=== PATIENT | female | born 1955 | race Caucasian/White ===

== ENCOUNTER 2018-11-27 00:30 | Outpatient (CLI) | payer MEDICARE, SELFPAY ==
--- NOTE | 2018-11-27 07:30 | DI.MAMMO_ITS ---
SYMPTOMS/DIAGNOSIS: SCREENING, Z12.31 MAMMOGRAM: Mammograms were interpreted according to the usual protocol including computer analysis with CAD system, tomosynthesis and C view imaging. The breasts are of moderate density. There is asymmetric fibroglandular tissue in the upper outer quadrant of the right breast compared to the left. No mass or clumped microcalcification identified in either breast. No previous images available for comparison. CONCLUSION: No specific evidence of malignancy at this time. Routine examinations are suggested at yearly intervals in this age group according to the ACS/ACR guidelines. Category I. Breast density Category B. MQSA ASSESSMENT OF FINDINGS: Negative. Category 1. Patient will receive a letter notifying them of these results. BI-RADS category B. There are scattered areas of fibroglandular density.
== END 2018-11-27 00:50 ==
PROVIDERS: PCP Nurse Practitioner; Visit Provider Nurse Practitioner
DX: Z12.31 Encounter for screening mammogram for malignant neoplasm of breast (principal)
CPT/HCPCS: 77063; 77067

== ENCOUNTER 2018-11-27 00:56 | Outpatient (CLI) | payer MEDICARE, SELFPAY ==
[2018-11-27 07:39] LABS: HCT 41.6 % (36.0-46.0); HGB 14.1 g/dL (12.0-15.5); Mean Corp. HGB Concentration 33.9 g/dL (32.0-36.0); Mean Corpuscular Hemoglobin 32.9 pg (27.0-33.0); Mean Corpuscular Volume 97.2 fL (80-95); Mean Platelet Volume 10.1 fL (8.0-11.0); Platelet Count 292 x1000/uL (130-400); RBC 4.28 m/cumm (4.00-5.20); RBC Distribution Width 12.3 % (11.7-14.6); White Blood Cell Count 8.42 k/cumm (4.4-10.8)
[2018-11-27 08:02] LABS: Bilirubin Negative (Negative); Blood Negative (Negative); Clarity Clear; Glucose Negative (Negative); Ketones Negative (Negative); Leukocyte Esterase Negative (Negative); Nitrite Negative (Negative); Specific Gravity 1.025 (1.005-1.025); Urobilinogen 0.2 EU/dL (Up TO 0.2)
[2018-11-27 08:03] LABS: Hemoglobin A1C 6.6 % (4.5-6.2)
[2018-11-27 09:03] LABS: ALT 32 U/L (12-78); AST 15 U/L (15-37); Albumin 4.2 g/dL (3.4-5.0); Alkaline Phosphatase 84 U/L (46-116); Anion Gap 9.1 mmol/L (3-11); BUN 22 mg/dL (7-18); Bilirubin, Total 0.7 mg/dL (0.2-1.0); CO2 30.9 mmol/L (21.0-32.0); CREATININE 0.86 mg/dL (0.55-1.02); Calcium 9.6 mg/dL (8.5-10.1); Chloride 101 mmol/L (98-107); Cholesterol 196 mg/dL (50-200); Glucose 136 mg/dL (70-100); HDL Cholesterol 65 mg/dL (40-60); LDL CHOLESTEROL 107 mg/dL (<100); Potassium 4.2 mmol/L (3.5-5.1); Sodium 141 mmol/L (136-145); Total Protein 7.6 g/dL (6.4-8.2); Triglyceride 143 mg/dL (30-150)
== END 2018-11-27 01:16 ==
PROVIDERS: PCP Nurse Practitioner; Visit Provider Nurse Practitioner
DX: E78.5 Hyperlipidemia, unspecified (principal); R73.03 Prediabetes; I10 Essential (primary) hypertension; E11.9 Type 2 diabetes mellitus without complications
CPT/HCPCS: 80053; 80061; 83721; 85027; 81003; 83036

== ENCOUNTER 2018-12-04 10:23 | Outpatient (REF) | payer MEDICARE, SELFPAY ==
--- NOTE | 2018-12-04 08:30 | PAPFT_PTH ---
PATIENT: Vandana Rothman LOC: [facility] U#:[id number] AGE/SX: 63/F ROOM: RE12/04/[address]: Kelly Arteaga APRN : 1955 BED: DIS: 12/04/2018 SPEC #: [id number] RECD: 12/04/18 12:37 STATUS: ELADIO MORENO #: [id number] DANIEL: 12/04/18 08:[address]: Kelly Arteaga DEPT: [facility] / [facility] Cytology RECD BY: Stephanie Pozo Tissues: 1 - CX/ENDOCX FOR PAP SMEARS Procedures: PAP THIN PREP/UVM Screening HPV DNA PROBE Comments: [id number]
[2018-12-04 13:13] LABS: Microalb ug/mg Crea 6.2 ug/mg Cr
== END 2018-12-04 10:43 ==
LOC: LBN 10:23
PROVIDERS: PCP Nurse Practitioner; Visit Provider Nurse Practitioner
DX: E11.9 Type 2 diabetes mellitus without complications (principal); Z12.4 Encounter for screening for malignant neoplasm of cervix; Z11.51 Encounter for screening for human papillomavirus (HPV)
CPT/HCPCS: 88142; 82043; 82570; 87624

== ENCOUNTER → 2019-01-19 09:12 | Outpatient (BNVA) | payer MEDICARE, SELFPAY | PROVIDERS: PCP Nurse Practitioner; Referring Provider Nurse Practitioner; Visit Provider Physical Therapy Assistant | DX: Z12.11 Encounter for screening for malignant neoplasm of colon (principal); I10 Essential (primary) hypertension; E11.9 Type 2 diabetes mellitus without complications ==

== ENCOUNTER 2019-02-09 06:56 | Day surgery (SDC) | payer MEDICARE, SELFPAY ==
--- NOTE | 2019-02-09 06:51 | COLE_ITS ---
Date of service: 02/09/19 Time of Service: 08:10 Colonoscopy Report Date of procedure: 02/09/19 Pre-op diagnosis general: Colon Cancer Screening Post-op diagnosis procedure note: other (Colorectal polyps) Procedure: Colonoscopy with polypectomy by cold forceps Surgeon: Skyla Strickland Anesthesia proc note operative: other (General/ ASA 2/ Kelly Mancilla CRNA) Estimated blood loss (mL): 3 Pathology: other (ascending ppolyp x2, sigmoid polyp x2) Complications: None Disposition: same day Indications: Mrs. Rothman is a pleasant 63 year old female who was seen in the office for a screening colonoscopy. Her last colonoscopy was in 2014 and was done in [place]. She had polyps, but per patient they were benign. Risks, benefits and complications have been reviewed. Complications include but are not limited to bleeding, pain, perforation, missed small lesion/polyp, sore throat, aspiration and adverse reaction to the medications. Questions were entertained and answered to their satisfaction and they wished to proceed. No guarantees were given or implied. Prep: Miralax/Dulcolax Procedure Start Time: 08:10 Procedure End Time: 08:44 Retraction Time: 20 minutes Findings: 4 small benign appearing polyp Procedure Description: After informed consent was obtained the patient was taken to the procedure room and placed in a left decubitous position. Monitors were applied and a time out was done. The patients name, date of , procedure, allergies to medications and metal in their body was reviewed. The patient was then sedated. Once sedated and comfortable a rectal exam was done. External exam was normal. Internal exam revealed a normal sphincter tone and no palpable masses. The scope was then introduced and retro-flexed. No internal hemorrhoids were identified. The scope was then advanced to the cecum without difficulty. The TI and appendiceal orifice were identified. The prep was adequate. The scope was then slowly retracted over [] minutes back into the rectum. Polyps were removed x2 in the ascending colon with cold forceps and x2 in the sigmoid colon with cold forceps. The scope was removed and the patient was woken up and taken back to Same day surgery in stable condition. The patient tolerated the procedure well and there were no immediate complications. Follow up: The patient should follow up in 3-5 years unless they develop changes in bowel habits or other new gastrointestinal complaints.
--- NOTE | 2019-02-09 06:51 | W.PM.DSUDISC ---
Discharge Plan Disposition Patient Disposition: HOME Condition: Good Discharge Details Reason For Visit: Screening colonoscopy Attending Provider: Skyla Strickland Primary Care Provider: Kelly Arteaga Home Meds and New Rx's Prescriptions: Continued cyclobenzaprine 10 mg tablet 10 mg PO HS PRN (Reason: muscle spasm) Qty: 30 RF: 2 One Daily Multi-Vit w-Mineral 4.5 mg iron powder in packet 1 mg PO DAILY RF: 0 fluticasone propionate [Flonase Allergy Relief] 50 mcg/actuation spray,suspension 2 spray GELA DAILY RF: 0 zolpidem 10 mg tablet 10 mg PO HS PRN (Reason: insomnia) Qty: 30 RF: 3 blood-glucose meter [Smart Patientsuch Verio System] misc .ROUTE .MEDSUPPLY Qty: 1 RF: 0 OneTouch Verio strip .ROUTE .MEDSUPPLY Qty: 50 RF: 12 lancets [FutureAdvisorTouch Delica Lancets] 33 gauge misc .ROUTE .MEDSUPPLY Qty: 100 RF: 0 atorvastatin 20 mg tablet 20 mg PO QPM Qty: 90 RF: 3 lisinopril 10 mg tablet 10 mg PO DAILY Qty: 90 RF: 3 omega-3 fatty acids-fish oil [Fish Oil] 360-1,200 mg Capsule 1 cap PO DAILY RF: 0 Zyrtec 10 mg Capsule 10 mg PO DAILY PRNRF: 0 timolol maleate 0.25 % Drops 1 drp OPHTHALMIC (EYE) BID RF: 0 Discontinued polyethylene glycol 3350 17 gram/dose powder 238 g PO ONCE Qty: 238 RF: 0 bisacodyl [Dulcolax (bisacodyl)] 5 mg tablet,delayed release (DR/EC) 5 mg PO ONCE Qty: 4 RF: 0 Discharge Instructions Instructions: Colonoscopy (DC), Colorectal Polyps (DC) Additional Instructions: Findings: 4 small, most likely benign polyps Follow up:depends on final pathology. I will send a letter in the mail Please call if you develop: fevers >101.5 Nausea or Vomiting Abdominal pain that is not transient DAY SURGERY UNIT POST COLONOSCOPY INSTRUCTIONS 1. Because there will be medication in your system for the next 24 hours, you may feel a little sleepy. Your coordination will be affected. Therefore: a. Do not drive or operate dangerous equipment for 24 hours. b. Do not drink alcohol beverages for 24 hours (not even beer). c. Plan to go home and rest for the day. 2. Generally there are no restrictions on your activity after a day or so has gone by, but you may feel a bit fatigued for a few days. 3 After you arrive home you may have a light meal and return to a normal diet as you can tolerate it without feeling sick to your stomach. 4. After surgery, you may feel pain or discomfort. This should be only transient, but if it persists please contact your doctor. 5. If there are any questions regarding the findings of your procedure, please feel free to contact your doctor. 6. If you are unable to contact your doctor with a problem, contact the hospital at [phone]. 7. Continue all your regular medications unless directed otherwise. I understand the above instructions and have no questions. Signature of Patient or Responsible Adult Escort Date/Time Name of Responsible Adult Escort Signature of Nurse Date/Time Activity:: Activity as Tolerated Diet:: As Tolerated Discharge Orders Discharge Orders: Discharge Order (Routine); Ordered 02/09/19 Ordered By: Skyla Strickland DS: Diagnosis Discharge Diagnosis (1) S/P colonoscopy: Status: Acute (2) Colorectal polyp detected on colonoscopy: Status: Acute
[2019-02-09 07:10] VITALS: BP 140/85; PULSE 89; RESP 18; TEMP 35.9; O2SAT 95
[2019-02-09] MEDS: Lactated Ringers 1,000 ML 80 ML IV (07:42)
--- NOTE | 2019-02-09 08:29 | BOWEL_PTH ---
PATIENT: Vandana Rothman LOC: [facility] U#:[id number] AGE/SX: 63/F ROOM: RE02/09/[address]: Skyla Strickland MD : 1955 BED: DIS: 02/09/2019 SPEC #: [id number] RECD: 02/09/19 12:51 STATUS: ELADIO REQ #: [id number] DANIEL: 02/09/19 08:[address]: Skyla Strickland DEPT: Surgical Specimen RECD BY: Stephanie Pozo ENTERED: 02/09/19 12:52 SP TYPE: Bowel OTHR DR: Kelly Arteaga APRN Tissues: 1 - BIOPSY BOWEL 2 - BIOPSY BOWEL Procedures: GROSS AND MICRO LEVEL 4 Comments: [id number]
[2019-02-09 09:30] VITALS: BP 134/78; PULSE 75; RESP 16; TEMP 35.6; O2SAT 100
== END 2019-02-09 09:45 | disposition home or self-care (01) ==
LOC: SUR 06:56
PROVIDERS: PCP Nurse Practitioner; Visit Provider Surgery
PROC: 0DJD8ZZ Inspection of Lower Intestinal Tract, Via Natural or Artificial Opening Endoscopic (ICD-10-PCS; CPT 45378; principal; 2019-02-09 08:15)
DX: Z12.11 Encounter for screening for malignant neoplasm of colon (principal); D12.2 Benign neoplasm of ascending colon; K63.5 Polyp of colon; Z87.19 Personal history of other diseases of the digestive system; I10 Essential (primary) hypertension
CPT/HCPCS: 45380; 88305

== ENCOUNTER 2019-06-26 03:34 | Outpatient (CLI) | payer MEDICARE, SELFPAY ==
[2019-06-26 08:02] LABS: ALT 32 U/L (12-78); AST 16 U/L (15-37); Alkaline Phosphatase 72 U/L (46-116); Anion Gap 10.5 mmol/L (3-11); BUN 19 mg/dL (7-18); Bilirubin, Total 0.8 mg/dL (0.2-1.0); CO2 28.5 mmol/L (21.0-32.0); CREATININE 0.82 mg/dL (0.55-1.02); Calculated LDL 35 mg/dL; Chloride 102 mmol/L (98-107); Cholesterol 125 mg/dL (50-200); Glucose 102 mg/dL (70-100); HDL Cholesterol 78 mg/dL (40-60); Potassium 4.2 mmol/L (3.5-5.1); Sodium 141 mmol/L (136-145); Total Protein 7.2 g/dL (6.4-8.2); Triglyceride 63 mg/dL (30-150)
== END 2019-06-26 03:54 ==
PROVIDERS: PCP Nurse Practitioner; Visit Provider Nurse Practitioner
DX: I10 Essential (primary) hypertension (principal)
CPT/HCPCS: 36415; 80053; 80061; 83721

== ENCOUNTER 2020-05-18 01:13 | Outpatient (CLI) | payer MEDICARE, SELFPAY ==
[2020-05-18 08:17] LABS: ALT 23 U/L (14-59); AST 14 U/L (15-37); Alkaline Phosphatase 64 U/L (46-116); Anion Gap 8.4 mmol/L (3-11); BUN 25 mg/dL (7-18); Bilirubin, Total 0.6 mg/dL (0.2-1.0); CO2 28.6 mmol/L (21.0-32.0); CREATININE 0.77 mg/dL (0.55-1.02); Calcium 9.5 mg/dL (8.5-10.1); Calculated LDL 109 mg/dL (<100); Chloride 104 mmol/L (98-107); Cholesterol 203 mg/dL (<200); Glucose 98 mg/dL (74-106); HDL Cholesterol 66 mg/dL (40-60); Potassium 4.4 mmol/L (3.5-5.1); Sodium 141 mmol/L (136-145); Triglyceride 143 mg/dL (<150)
== END 2020-05-18 01:33 ==
PROVIDERS: PCP Nurse Practitioner; Visit Provider Nurse Practitioner
DX: E78.5 Hyperlipidemia, unspecified (principal); E11.9 Type 2 diabetes mellitus without complications; I10 Essential (primary) hypertension
CPT/HCPCS: 36415; 80053; 80061

== ENCOUNTER 2020-11-21 11:51 | Outpatient (REF) | payer MEDICARE, SELFPAY ==
[2020-11-21 14:15] LABS: COMMENT (LAB VIEW ONLY) 53.93 mg/dL; Microalb ug/mg Crea 9.1 ug/mg Cr
== END 2020-11-21 12:11 ==
LOC: LBN 11:51
PROVIDERS: PCP Nurse Practitioner; Visit Provider Nurse Practitioner
DX: E11.9 Type 2 diabetes mellitus without complications (principal)
CPT/HCPCS: 82043; 82570

== ENCOUNTER 2021-02-01 02:04 | Outpatient (CLI) | payer MEDICARE, SELFPAY ==
--- NOTE | 2021-02-01 08:00 | DI.DEXA_ITS ---
EXAM: XR DEXA BONE DENSITY W/WO SHONNA CLINICAL HISTORY: f/u osteopenia 2011,M85.88 TECHNIQUE: Routine DEXA evaluation of the lumbar spine, hip, or forearm. COMPARISON: No exams were available for comparison FINDINGS: Performed on a Hologic unit. Lateral image: No compression fracture evident. Lumbar Spine total T-score: -1.0 Hip total T-score:-1.9. Independent reading at the femoral neck yields a T-score of -2.1 Forearm total T-score: -2.4 IMPRESSION: Bone mineral density measures in the osteopenia range. Fracture risk is moderate. Note: Any spine fracture indicates 5x risk for subsequent spine fracture and 2x risk for subsequent h ip fracture. World Health Organization criteria for BMD interpretation classify patients: Normal...... T- Score at or above -1.0 Osteopenic... T- Score between -1.0 and -2.5 Osteoporosis... T-Score at or below -2.5
--- NOTE | 2021-02-01 16:50 | DI.MAMMO_ITS ---
EXAM: MG MAMMO SCREENING CLINICAL HISTORY: screening,Z12.39. TECHNIQUE: Bilateral full field digital CC and MLO mammographic images were obtained with 3D tomosyn thesis and utilizing computer aided detection (CAD). COMPARISON: Prior mammogram of November 2018 FINDINGS: There are no new spiculated masses nor malignant appearing microcalcification groups. There is no significant architectural distortion nor skin thickening-retraction. IMPRESSION: No radiographic evidence of malignancy. BI-RADS Category 1 - Negative Breast Density - Category B - Scattered areas of fibroglandular density Breast density Category C or D implies that the patient has dense breast tissue. Dense breast tissue can make it harder to find cancer on a mammogram. Dense breast tissue is also associated with an incr eased risk of breast cancer. This information about the result of the mammogram report was provided to the patient to raise their awareness. Use this report when you speak with the patient about their risks for breast cancer, which includes their family history. At that time, you may recommend additional screening tests (Ultrasoun d or MRI) as these tests may add significant information. A negative radiographic report should not delay biopsy if a dominant or clinically suspicious mass is present. Up to ten percent of cancers are not identified on mammography. A negative report may reinforce clinical impression. Adenosis and dense breasts may obscure an underlying neoplasm. False positive reports average 6 to 10%. Patient will receive a letter notifying them of these results.
== END 2021-02-01 02:24 ==
PROVIDERS: PCP Nurse Practitioner; Visit Provider Nurse Practitioner
DX: Z12.31 Encounter for screening mammogram for malignant neoplasm of breast (principal); M85.88 Other specified disorders of bone density and structure, other site
CPT/HCPCS: 77063; 77067; 77080

== ENCOUNTER 2021-05-01 03:22 | Outpatient (CLI) | payer MEDICARE, SELFPAY ==
[2021-05-01 12:59] LABS: ALT 26 U/L (14-59); AST 17 U/L (15-37); Albumin 4.3 g/dL (3.4-5.0); Alkaline Phosphatase 71 U/L (46-116); Anion Gap 8.8 mmol/L (3-11); BUN 29 mg/dL (7-18); Bilirubin, Total 0.7 mg/dL (0.2-1.0); CO2 29.2 mmol/L (21.0-32.0); CREATININE 0.9 mg/dL (0.55-1.02); Calcium 9.6 mg/dL (8.5-10.1); Calculated LDL 95 mg/dL (<100); Chloride 101 mmol/L (98-107); Cholesterol 187 mg/dL (<200); Glucose 107 mg/dL (74-106); HDL Cholesterol 75 mg/dL (40-60); Potassium 4.2 mmol/L (3.5-5.1); Sodium 139 mmol/L (136-145); Total Protein 7.5 g/dL (6.4-8.2); Triglyceride 88 mg/dL (<150)
== END 2021-05-01 03:23 | disposition home or self-care (01) ==
LOC: LOS 03:23
PROVIDERS: PCP Nurse Practitioner; Visit Provider Nurse Practitioner
DX: I10 Essential (primary) hypertension (principal); E11.9 Type 2 diabetes mellitus without complications; E78.5 Hyperlipidemia, unspecified
CPT/HCPCS: 36415; 80053; 80061

== ENCOUNTER 2022-03-12 01:26 | Outpatient (CLI) | payer MEDICARE, SELFPAY ==
[2022-03-12 12:48] LABS: HCT 38.3 % (36.0-46.0); HGB 12.7 g/dL (11.2-15.7); MCH 32.5 pg (27.0-33.0); MCHC 33.2 % (32.0-36.0); MCV 98 fL (80-95); MPV 9.4 fL (8.0-11.0); Platelet Count 346 10^3/uL (130-400); RBC 3.91 10^6/uL (3.93-5.22); RDW 12.5 % (11.7-14.6); RDW-SD 44.9 fL; WBC 8.23 10^3/uL (4.4-10.8)
[2022-03-12 13:24] LABS: ALT 27 U/L (14-59); AST 17 U/L (15-37); Albumin 3.9 g/dL (3.4-5.0); Alkaline Phosphatase 79 U/L (46-116); Anion Gap 7.1 mmol/L (3-11); BUN 18 mg/dL (7-18); Bilirubin, Total 0.5 mg/dL (0.2-1.0); C-Reactive Protein 0.06 mg/dL (0.0-0.3); CO2 27.9 mmol/L (21.0-32.0); CREATININE 0.9 mg/dL (0.55-1.02); Chloride 105 mmol/L (98-107); Glucose 115 mg/dL (74-106); Potassium 4.3 mmol/L (3.5-5.1); Sodium 140 mmol/L (136-145)
[2022-03-12 13:47] LABS: Calculated LDL 83 mg/dL (<100); Cholesterol 176 mg/dL (<200); HDL Cholesterol 66 mg/dL (40-60); Triglyceride 135 mg/dL (<150)
[2022-03-12 14:31] LABS: ESR 4 mm/hr (0-30)
[2022-03-12 21:19] LABS: Rheumatoid Factor <8.6 IU/mL (<12.0)
[2022-03-13 11:19] LABS: Lyme Ab w Rflx to Lyme Confirm Negative (Negative)
[2022-03-13 16:17] LABS: ANA Interpretation Positive (Negative); ANA Titer Pattern 1:320 Homogeneous
== END 2022-03-12 01:27 | disposition home or self-care (01) ==
LOC: LOS 01:26
PROVIDERS: PCP Nurse Practitioner; Visit Provider Nurse Practitioner
DX: M25.50 Pain in unspecified joint (principal); M25.60 Stiffness of unspecified joint, not elsewhere classified; E11.9 Type 2 diabetes mellitus without complications; E78.5 Hyperlipidemia, unspecified; I10 Essential (primary) hypertension; E78.00 Pure hypercholesterolemia, unspecified
CPT/HCPCS: 36415; 80053; 80061; 85027; 85652; 86038; 86140; 86431; 86618

== ENCOUNTER → 2022-08-24 10:43 | Outpatient (BNVA) | payer MEDICARE, SELFPAY | PROVIDERS: PCP Nurse Practitioner; Referring Provider Nurse Practitioner; Visit Provider Surgery | DX: Z86.010 Personal history of colon polyps (principal); Z12.11 Encounter for screening for malignant neoplasm of colon ==

== ENCOUNTER 2022-09-03 09:45 | Day surgery (SDC) | payer MEDICARE, SELFPAY ==
--- NOTE | 2022-09-03 06:44 | COLE_ITS ---
Date of service: 09/03/22 Time of Service: 11:43 Colonoscopy Report Date of procedure: 09/03/22 Pre-op diagnosis general: colon cancer screening and Hx of polyps Post-op diagnosis procedure note: other (ascending polyp) Procedure: Colonoscopy with polypectomy Surgeon: Skyla Strickland Anesthesia Type: General:No Airway Estimated blood loss (mL): 2 Pathology: other (scending polyp) Complications: None Disposition: same day Indications: The patient? is a pleasant ? 67-year-old female who is here to discuss another screening colonoscopy. ? Her last colonoscopy was in 2019 and she was noted to have a sessile serrated adenoma.? She denies any changes in bowel habits, melena, hematochezia, unintentional weight loss or family history of colon cancer.? The procedure and risks were discussed.? The prep was reviewed in det ail.? Risks, benefits and complications have been reviewed. Complications include but are not limited to bleeding, pain, perforation, missed small lesion/polyp, sore throat, aspiration and adverse reaction to the medications. Questions were entertained and answered to their satisfaction and they wished to proceed. No guarantees were given or implied. Prep: Miralax/Dulcolax Procedure Start Time: 11:43 Procedure End Time: 12:13 Retraction Time: 14 minutes Findings: one small polyp Procedure Description: After informed consent was obtained the patient was taken to the procedure room and placed in a left decubitous position. Monitors were applied and a time out was done. The patients name, date of , procedure, allergies to medications and metal in their body was reviewed. The patient was then sedated. Once sedated and comfortable a rectal exam was done. External exam was normal. Internal exam revealed a normal sphincter tone and no palpable masses. The scope was then introduced and retro-flexed. No internal hemorrhoids, polyps or masses were identified on retro-flexion. The scope was then advanced to the cecum without difficulty. The ileocecal vlave and appendiceal orifice were identified. The prep was adequate. The scope was then slowly retracted over 14 minutes back into the rectum. Polyps were removed with cold forceps in the ascending colon. There was no diverticulosis noted. The scope was removed and the patient was woken up and taken back to Same day surgery in stable condition. The patient tolerated the procedure well and there were no immediate complicatio ns. .
--- NOTE | 2022-09-03 06:45 | W.PM.DSUDISC ---
Date of service: 09/03/22 Time of Service: 11:43 Discharge Plan Disposition Patient Disposition: HOME Condition: Good Discharge Details Reason For Visit: colonoscopy Attending Provider: Skyla Strickland Primary Care Provider: Kelly Arteaga Home Meds and New Rx's Prescriptions: Continued One Daily Multi-Vit w-Mineral 4.5 mg iron powder in packet 1 mg PO DAILY (DME) blood-glucose meter [OneTouch Verio Meter] mis See Dose Instructions .ROUTE .MEDSUPPLY Qty: 1 0RF Dose Instruction: As directed Rx Instructions: As directed latanoprost 0.005 % drops 1 drp OP QPM (DME) OneTouch Verio test strips Strip See Dose Instructions .ROUTE .MEDSUPPLY Qty: 50 12RF Dose Instruction: As directed Rx Instructions: Dx E11.9 To test BS daily to keep A1C less than 7.0. (DME) lancets [OneTouch Delica Lancets] 33 gauge misc See Dose Instructions .ROUTE .MEDSUPPLY Qty: 100 6RF Dose Instruction: As directed Rx Instructions: Dx E11.9 To test BS daily to keep A1C less than 7.0. timolol 0.25 % drops 1 drp OP BID Zyrtec 10 mg capsule 10 mg PO DAILY PRN (Reason: allergy symptoms) Qty: 90 3RF fluticasone propionate [Flonase Allergy Relief] 50 mcg/actuation spray,suspension 2 spray GELA DAILY Qty: 16 12RF lisinopril 10 mg tablet 10 mg PO DAILY Qty: 90 3RF cyclobenzaprine 10 mg tablet 10 mg PO HS PRN (Reason: muscle spasm) Qty: 90 3RF zolpidem 10 mg tablet 10 mg PO HS PRN (Reason: insomnia) Qty: 90 1RF Discontinued polyethylene glycol 3350 17 gram/dose powder 238 g PO ONCE Qty: 238 0RF Rx Instructions: take per colonoscopy instructions bisacodyl [Dulcolax (bisacodyl)] 5 mg tablet,delayed release (DR/EC) 5 mg PO ONCE Qty: 4 0RF Rx Instructions: take per colonoscopy instructions Discharge Instructions Additional Instructions: Findings: one small polyp Follow up: 5 years Please call if you develop: fevers >101.5 Nausea or Vomiting Abdominal pain that is not transient Rectal bleeding that is more then a tbsp A hard abdomen and inability to pass gas DAY SURGERY UNIT POST ENDOSCOPY INSTRUCTIONS Instructions for everyone who is given Anesthesia: For your safety, please do the following for the next 24 Hours: a. Do not drive or operate dangerous equipment b. Do not drink alcohol beverages or use any recreational drugs for the first 24 hours or while taking pain medications. The medications in your body may have a reaction that can be dangerous. c. Do not make any important decisions or sign any important papers 1. Generally there are no restrictions on your activity after a day or so has gone by, but you may feel a bit fatigued for a few days. 2. After you arrive home you may have a light meal and return to a normal diet as you can tolerate it without feeling sick to your stomach. 3. After surgery, you may feel pain or discomfort. This should be only transient, but if it persists please contact your doctor. 4. If there are any questions regarding the findings of your procedure, please feel free to contact your doctor. 6. If you are unable to contact your doctor with a problem, contact the hospital at [phone]. 7. Continue all your regular medications unless directed otherwise. I understand the above instructions and have no questions. Signature of Patient or Responsible Adult Escort Date/Time Name of Responsible Adult Escort Signature of Nurse Date/Time Activity:: Activity as Tolerated Diet:: As Tolerated Discharge Orders Discharge Orders: Discharge Order (Routine); Ordered 09/03/22 Ordered By: Skyla Strickland
[2022-09-03 09:50] VITALS: BP 148/78; PULSE 74; RESP 16; TEMP 36.2; O2SAT 96
[2022-09-03] MEDS: Lactated Ringers 1,000 ML 80 ML IV (10:07)
[2022-09-03 10:39] VITALS: BMI 29.6
--- NOTE | 2022-09-03 10:39 | W.ANESPRE ---
General Info Date of Service Date Performed: 09/03/22 Height: 5 ft 1 in Weight: 71.2 kg Body Mass Index (BMI): 29.6 Surgical Procedure: Operation Date: 09/03/22 11:35 Proposed Procedure Side Surgeon p Colonoscopy Skyla Strickland MD Meds Allergies and Home Medications Allergies Allergy/AdvReac Type Severity Reaction Status Date / Time procaine [From Novocain] Allergy Severe violent Verified 09/03/22 09:55 headache prednisone AdvReac Mild doesn't Verified 09/03/22 09:55 seem to work Home Medication Medication Instructions Recorded blood-glucose meter (OneTouch #1 ea 12/31/18 Verio Meter) multivit with minerals-ferrous 1 mg PO DAILY 01/19/19 sulfate 4.5 mg iron oral powder packet (One Daily Multivitamins with Minerals) latanoprost 0.005 % eye drops 1 drp ophthalmic (eye) QPM 06/29/19 timolol 0.25 % eye drops 1 drp ophthalmic (eye) BID 02/29/20 cetirizine 10 mg capsule (Zyrtec) 10 mg PO DAILY PRN allergy 12/18/21 symptoms #90 caps fluticasone propionate 50 2 spray intranasal DAILY #16 grams 12/18/21 mcg/actuation nasal spray,suspension (Flonase Allergy Relief) lisinopril 10 mg tablet 10 mg PO DAILY #90 tabs 12/18/21 cyclobenzaprine 10 mg tablet 10 mg PO HS PRN muscle spasm #90 02/12/22 tabs zolpidem 10 mg tablet 10 mg PO HS PRN insomnia #90 tabs 04/17/22 blood sugar diagnostic (OneTouch #50 ea 07/02/22 Verio test strips) lancets 33 gauge (OneTouch Delica #100 ea 07/02/22 Lancets) bisacodyl 5 mg tablet,delayed 5 mg PO ONCE colonscopy bowel prep 08/24/22 release (Dulcolax (bisacodyl)) #4 tabs polyethylene glycol 3350 17 238 g PO ONCE colonoscopy prep 08/24/22 gram/dose oral powder #238 grams Current Visit Medications: Current Medications Generic Name Dose Route Start Last Admin Trade Name Freq PRN Reason Stop Dose Admin Hyoscyamine Sulfate 0.125 mg 09/03/22 06:46 Hyoscyamine 0.125 Mg Sl/Oral/Chew SL DIRECTED PRN Ringer's Solution 1,000 mls @ 80 mls/hr 09/03/22 06:00 09/03/22 10:07 IV 09/30/22 23:59 80 mls/hr INFUSION DEDE Administration IV Miscellaneous Supplies 1 each 09/03/22 06:00 Iv Access IV 09/30/22 23:59 DIRECTED DEDE Ondansetron HCl 4 mg 09/03/22 06:46 Ondansetron 4 Mg/2 Ml Vial IVP Q4H PRN PRN Nausea / Vomiting Sodium Chloride 0 ml 09/03/22 06:00 Normal Saline Flush 10 Ml Syr IV 09/30/22 23:59 PRN PRN Sodium Chloride 0 ml 09/03/22 06:00 Normal Saline 10 Ml Vial IJ 09/30/22 23:59 DIRECTED PRN Sterile Water 0 ml 09/03/22 06:00 Water,Injection,Sterile 10 Ml Vial IJ 09/30/22 23:59 DIRECTED PRN PFSH Active Problems Active Problems: Problem Status Onset Code Seborrheic keratoses L82.1 Ex-smoker Z87.891 Osteopenia M85.80 Type 2 diabetes mellitus without complications E11.9 Joint stiffness M25.60 Joint pain M25.50 Osteoarthritis M19.90 Colorectal polyp detected on colonoscopy ~02/09/19 K63.5 DM (diabetes mellitus) E11.9 Osteopenia M85.80 Hyperlipidemia E78.5 Essential hypertension I10 Low back pain M54.5 Medical History Medical History Allergic rhinitis Colon polyp Fatigue Fibrocystic breast Glaucoma Hypoglycemia Impaired fasting glucose Medical History Comments:: Patient reports post nasal drip occ. and signifigant allergies particularly at this time of year. Surgical History Surgical History History of colonoscopy (~02/09/19) 2010- normal 2019- SSA and HP History of tonsillectomy History of tubal ligation Tobacco Smoking/Tobacco Use Status: Former Tobacco Use Alcohol Alcohol Intake: never Substance Use Substance use: Never Substance use type: does not use Vital Signs and Lab Results Vital Signs Most Recent Vital Signs in EMR: Most Recent Vital Signs Temp Pulse Resp BP Pulse Ox 36.2 C L 74 16 148/78 H 96 09/03/22 09:50 09/03/22 09:50 09/03/22 09:50 09/03/22 09:50 09/03/22 09:50 Lab Results Blood Type / Crossmatch: No Data to Display Complete Blood Count: No Data to Display Complete Metabolic Panel: No Data to Display Liver Function Panel: No Data to Display Coagulation Panel: No Data to Display Cardiac Panel: No Data to Display Arterial Blood Gas: No Data to Display Venous Blood Gas: No Data to Display Pancreas Panel: No Data to Display Thyroid Panel: No Data to Display Infectious Disease: No Data to Display Blood Cultures: No Data to Display Toxicology Panel: No Data to Display Anesthesia Assessment and Plan Anesthesia History Personal History: No History of Anesthesia Complications Family History: No Family History of Anesthesia Complications Exercise Tolerance Exercise Tolerance: Metabolic Equivalents>4 Pertinent Negatives Pertinent Negatives: No Symptoms of GERD Cardiac & Pulmonary Exam Cardiac Exam: Normal S1/S2 Heart Sounds Pulmonary Exam: Clear Bilateral Breath Sounds Implantable Cardiac Device Does patient have a Pacemaker or an ICD?: No Airway Exam Known Difficult Airway: No Mallampati Class: 2 Mouth Opening: Normal (> 3cm) Thyromental Distance: Greater than 3 cm Neck Range of Motion: Full ROM Neck Circumference: Normal Teeth Condition: Normal Dentition ASA Classification ASA Score: ASA 2 Emergency Case?: No NPO Status NPO Status: NPO Clears >2 hours, Solids >8 hours Anesthesia Plan Resuscitation Status: Full Code Anesthesia Technique: General Anesthesia Airway Planned: Natural Airway Monitors Used: Standard Monitors
--- NOTE | 2022-09-03 12:04 | BOWEL_PTH ---
PATIENT: Vandana Rothman LOC: [facility] U#:[id number] AGE/SX: 67/F ROOM: RE09/03/[address]: Skyla Strickland MD : 1955 BED: DIS: 09/03/2022 SPEC #: [id number] RECD: 09/03/22 13:23 STATUS: ELADIO REQ #: [id number] DANIEL: 09/03/22 12:[address]: Skyla Strickland DEPT: Surgical Specimen RECD BY: Stephanie Pozo ENTERED: 09/03/22 13:24 SP TYPE: Bowel OTHR DR: Kelly Arteaga APRN Tissues: 1 - BIOPSY BOWEL Procedures: GROSS AND MICRO LEVEL 4 Comments: [id number]
[2022-09-03 12:19] VITALS: BP 109/81; PULSE 89; RESP 17; TEMP 36.5; O2SAT 95
[2022-09-03 12:57] VITALS: BP 148/78; PULSE 78; RESP 16; TEMP 36.6; O2SAT 96
--- NOTE | 2022-09-03 13:01 | W.ANESPOSTOP ---
Postoperative Evaluation Date, Time and Location Date Performed: 09/03/22 Time Performed: 12:24 Patient Location: Day Surgery Unit Vital Signs Most Recent Imported Vital Signs: Most Recent Vital Signs Temp Pulse Resp BP Pulse Ox 36.5 C 89 17 109/81 95 09/03/22 12:19 09/03/22 12:19 09/03/22 12:19 09/03/22 12:19 09/03/22 12:19 Pain Score Most Recent Pain Score: Most Recent Pain Score Pain Level 3 09/03/22 12:19 Assessment Mental Status: Awake (Alert & Oriented to Patient Baseline) Airway and Respiratory Function: Patent airway with normal (patient baseline) respiratory exam Cardiovascular Function: Hemodynamically Stable Hydration Status: Adequately Hydrated Nausea & Vomiting: No Nausea or Vomiting Pain: Pt. Denies Any Pain Peripheral Nerve Block: Patient did not receive a nerve block
== END 2022-09-03 09:46 | disposition home or self-care (01) ==
PROVIDERS: PCP Nurse Practitioner; Visit Provider Surgery
PROC: 0DJD8ZZ Inspection of Lower Intestinal Tract, Via Natural or Artificial Opening Endoscopic (ICD-10-PCS; CPT 45378; principal; 2022-09-03 11:30)
DX: Z12.11 Encounter for screening for malignant neoplasm of colon (principal); K63.5 Polyp of colon; Z86.010 Personal history of colon polyps; K63.89 Other specified diseases of intestine
CPT/HCPCS: 45380; 88305

== ENCOUNTER 2023-04-10 02:55 | Outpatient (CLI) | payer MEDICARE, SELFPAY ==
--- NOTE | 2023-04-10 07:30 | DI.MAMMO_ITS ---
Exam(s) MAMMO SCREENING EXAM: MAMMO SCREENING CLINICAL HISTORY: screening,z12.39 TECHNIQUE: Bilateral full field digital CC and MLO mammographic images were obtained with 3D tomosyn thesis and utilizing computer aided detection (CAD). COMPARISON: Available for comparison. FINDINGS: Masses/Architectural Distortion: Stable nodule in the outer left breast. No suspicious nodules. Sta ble asymmetric density in the upper-outer quadrant of the right breast. No evidence of architectural distortion. Microcalcifications: No suspicious pleomorphic-type are seen. Skin Thickening/Nipple Retraction: None. IMPRESSION: 1. No significant interval change with no specific features of malignancy noted. 2. Unless there is more urgent need, screening mammography is recommended, as per [employer] guidelines. BI-RADS Category 1 - Negative Breast Density - Category B - Scattered areas of fibroglandular density Breast density category C or D implies that the patient has dense breast tissue. Dense breast tissue is very common and is not abnormal but dense breast tissue can make it harder to find cancer on a ma mmogram. Also, dense breast tissue may increase their breast cancer risk. This information about the result of the mammogram report was provided to the patient to raise their awareness. Use this report when you speak with the patient about their risks for breast cancer, which includes their family hist ory. At that time, you may recommend for more screening tests (Ultrasound or MRI) as they might be us eful based on their risk. A negative radiographic report should not delay biopsy if a dominant or clinically suspicious mass is present. Up to ten percent of cancers are not identified on mammography. A negative report may reinforce clinical impression. Adenosis and dense breasts may obscure an underlying neoplasm. False positive reports average 6 to 10%. Patient will receive a letter notifying them of these results.
== END 2023-04-10 03:15 ==
LOC: DI 02:55
PROVIDERS: PCP Nurse Practitioner; Visit Provider Nurse Practitioner
DX: Z12.31 Encounter for screening mammogram for malignant neoplasm of breast (principal)
CPT/HCPCS: 77063; 77067

== ENCOUNTER 2023-05-26 07:59 | Inpatient (IN) | payer MEDICARE, SELFPAY ==
[2023-05-26] VITALS (37 sets, daily range): BP systolic 96–144; BP diastolic 57–87; PULSE 65–105; RESP 14–24; TEMP 36–37.1; O2SAT 92–97
--- NOTE | 2023-05-26 08:00 | RT.EKG_ITS ---
APPROVED REPORT Exam: Resting ECG Reason for Exam: chest pain Patient Location: E HR:96 bpm ECG Measurements Heart Rate 96 AXIS TX 116 P 71 QRSd 79 QRS 35 QT 276 T 255 QTc 349 Conclusion Sinus rhythm...normal P axis, V-rate 60- 99 Ventricular premature complex...V complex w/ short R-R interval Borderline repol abnormality, diffuse leads...ST dep, T flat/neg, ant/lat/inf
--- NOTE | 2023-05-26 08:15 | DI.CT_ITS ---
Exam(s) CT CHEST/ABD/PEL W EXAM: CT CHEST/ABD/PEL W CLINICAL HISTORY: Midepigastric abd pain, R/O AAA TECHNIQUE: Imaging Protocol: Axial computed tomography images with coronal and sagittal reformatted images were created and reviewed CONTRAST MATERIAL: Intravenous: Omnipaque 350 contrast volume:100 mL Oral: No COMPARISON: No exams were available for comparison FINDINGS: CHEST: Tracheobronchial tree: Patent where visualized. Pulmonary parenchyma: No consolidation or dominant measurable mass. No architectural distortion. Mild atelectasis seen in the lung bases. Visualized thyroid gland: Unremarkable. Mediastinum and Natalia: No dominant adenopathy or fluid collection. The esophagus is unremarkable. Pleura: No effusion or pneumothorax. Heart: The heart is not dilated. Mild coronary artery calcification. No pericardial effusion. Pulmonary arteries: The subsegmental pulmonary arteries are poorly opacified. No large central pulmo nary embolus is seen. Aorta: Thoracic aorta non-dilated. No evidence of dissection. Atherosclerosis is present. Lymph nodes: Within normal limits. Soft tissues: Unremarkable. Bones:Within normal limits for the patient's age. ABDOMEN: Liver: Normal density. No measurable mass. Portal, Superior Mesenteric, and Splenic Veins: Unremarkable. Gallbladder and Biliary Tract: There is no cholelithiasis. The gallbladder is mildly distended. The re is an enhancing wall and mild pericholecystic fluid. There is intra and extrahepatic bile duct di latation. The common duct measures 1 cm. Pancreas: Normal density, no abnormal calcifications or inflammatory process. Spleen: Normal. Adrenals: No masses seen. Kidneys: Normal size, contour and axis. No radiodense stones or obstructive uropathy. No masses seen. Abdominal Aorta: Abdominal portion non-dilated. Moderate atherosclerosis. Bowel: No obstruction or bowel wall thickening. There is no evidence of appendicitis. There is a lar ge amount of stool seen in the cecum in the ascending colon. Peritoneal Cavity: No ascites, collection or mesenteric inflammatory response. No free air. Lymph Nodes: Within normal limits. Bones: Within normal limits for the patient's age. Soft Tissues: Unremarkable. PELVIS: Bladder: Symmetric distention, no gross wall thickening. Reproductive Organs: Unremarkable as visualized. Lymph Nodes: Within normal limits. Bones: Within normal limits. IMPRESSION: 1. No acute pulmonary process. 2. No evidence of a thoracic aortic aneurysm or dissection. 3. No evidence of an abdominal aortic aneurysm or dissection. 4. Intra and extrahepatic bile duct dilatation. No cholelithiasis. Pericholecystic fluid. Findings may represent an acute cholecystitis. Gallbladder ultrasound is recommended for further evaluation. In addition, MRCP should be considered to exclude a obstructing mass. RADIATION DOSE DELIVERED: 1,213.42mGy.cm Total DLP DATA REPOSITORY: All CT scans at this facility are submitted to the National Radiology Data Registry (NRDR) Dose Index Registry (DIR) with the [employer] (A[employer]). RADIATION OPTIMIZATION: All CT scans at this facility use at least one of these dose optimization te chniques: automated exposure control; mA and/or kV adjustment per patient size (includes targeted exa ms where dose is matched to clinical indication); or iterative reconstruction.
[2023-05-26 08:27] LABS: Abs Immature Grans 0.05 10^3/uL (0.0-0.06); Absolute Basophil Count 0.05 10^3/uL (0.0-0.2); Absolute Eosinophil Count 0.01 10^3/uL (0.0-0.7); Absolute Lymphocyte Count 1.07 10^3/uL (1.2-3.4); Basophils % 0.4; Eosinophils % 0.1; HCT 37.4 % (36.0-46.0); HGB 12.8 g/dL (11.2-15.7); Immature Grans % 0.4; Lymphocytes % 9.3; MCH 32.3 pg (27.0-33.0); MCHC 34.2 % (32.0-36.0); MCV 94 fL (80-95); MPV 9.6 fL (8.0-11.0); Monocytes % 14.6; Neutrophils % 75.2; Platelet Count 289 10^3/uL (130-400); RBC 3.96 10^6/uL (3.93-5.22); RDW 12.8 % (11.7-14.6); RDW-SD 44.1 fL; WBC 11.47 10^3/uL (4.4-10.8)
--- NOTE | 2023-05-26 08:29 | W.ED.GENAD ---
Discharge Plan Disposition Patient Disposition: Admit to [facility] Condition: Stable Discharge Details Clinical Impression: Choledocholithiasis Admit Date/Time: 05/26/23 10:28 Admit Provider: Nneka Alston Attending Provider: Nneka Alston Primary Care Provider: Kelly Arteaga ED Provider: Sheridan Khan Discharge Data Discharge Date/Time-TO BE ENTERED AT DEPARTURE: 05/26/23 11:42 Medical Decision Making 68-year-old female presents to the ER with a chief complaint of midepigastric abdominal pain which radiates into her back which began on Saturday morning. She reports that it waxes and wanes. She has tried some cgmm-sqf-uuzkwno Gaviscon or Tums equivalent with little to no relief on Saturday. She has not had any aspirin today. She does have a past medical history of hypertension, she is a former smoker 30 years ago, osteopenia, type 2 diabetes mellitus without complications, hyper lipidemia and low back pain. She endorses dizziness, feeling clammy no nausea vomiting diarrhea. No problems urinating or any other associated symptoms. EKG was reviewed by myself and Dr. Herve Bustamante ER attending, please see official report, no old EKG available for review. No STEMI, ST depressions in diffuse leads with repolarization abnormality. Cardiac work-up ordered including serial troponins, lipase, 324 mg aspirin chewable ordered, Mylanta 30 mils. Differential diagnosis includes but not limited to IL, CAD, AAA, GERD, small bowel obstruction, Cholecystitis, Pancreatitis CBC shows white blood cell count of 11.47, absolute neutrophils 1.07, there is a left shift, glucose 139 magnesium 1.7 bilirubin 4.7 elevated transaminases AST 302 ALT 481 alk phos 286 initial troponin within normal limits. Lipase is normal at 27. CT chest abdomen pelvis shows #1. Common bile duct dilated to 12 mm with intrahepatic ductal dilatation. No radiopaque ductal calculus identified. Smooth tapering to the ampulla is noted. Additional work-up with MRCP suggested. No a abdominal aortic aneurysm. Moderate stool burden in the proximal colon with cecum distended to 7 cm no bowel obstruction. 1021: Will page surgery. 1027: Spoke with Dr. Alston who agrees to accept patient for admission for a ERCP. I will discuss plan of care with patient and family. They are in agreement with the plan of care all their questions were answered to the best my ability. Did discuss diet with them okay to drink fluids at this point. Patient does not require any nausea or pain medication at this time. This text was generated using [employer] system, please disregard any oddities of phrase or misspellings. Medical Records Medical records reviewed: Yes I reviewed the patient's medical records. Lab Data Lab results reviewed: Yes I reviewed the patient's lab results. Labs: Laboratory Tests Range/Units 05/26/23 05/26/23 08:22 08:22 WBC (4.4-10.8) 10^3/uL 11.47 H RBC (3.93-5.22) 10^6/uL 3.96 Hgb (11.2-15.7) g/dL 12.8 Hct (36.0-46.0) % 37.4 MCV (80-95) fL 94 MCH (27.0-33.0) pg 32.3 MCHC (32.0-36.0) % 34.2 RDW (11.7-14.6) % 12.8 Plt Count (130-400) 10^3/uL 289 MPV (8.0-11.0) fL 9.6 Immature Gran % 0.4 Neutrophils % 75.2 Lymphocytes % 9.3 Monocytes % 14.6 Eosinophils % 0.1 Basophils % 0.4 Nucleated RBC % (0.0-0.3) % 0.0 Absolute Neutrophils (1.2-6.7) 10^3/uL 8.63 H Absolute Lymphocytes (1.2-3.4) 10^3/uL 1.07 L Absolute Monocytes (0.1-0.8) 10^3/uL 1.67 H Absolute Eosinophils (0.0-0.7) 10^3/uL 0.01 Absolute Basophils (0.0-0.2) 10^3/uL 0.05 RBC Morphology Normal Sodium (136-145) mmol/L 140 Potassium (3.5-5.1) mmol/L 3.5 Chloride (98-107) mmol/L 102 Carbon Dioxide (21.0-32.0) mmol/L 27.1 Anion Gap (3-11) mmol/L 10.9 BUN (7-18) mg/dL 11 Creatinine (0.55-1.02) mg/dL 0.8 Est GFR (CKD-EPI 2020) (mL/min/1.73m2) 79.22 Glucose (74-106) mg/dL 139 H Calcium (8.5-10.1) mg/dL 9.1 Magnesium (1.8-2.4) mg/dL 1.7 L Total Bilirubin (0.2-1.0) mg/dL 4.7 H AST (15-37) U/L 302 H ALT (14-59) U/L 481 H Alkaline Phosphatase (46-116) U/L 286 H Troponin I (<or=60) ng/L < 50 Total Protein (6.4-8.2) g/dL 7.6 Albumin (3.4-5.0) g/dL 3.6 Lipase (16-77) U/L 27 ECG Data Prior ECG tracings: not available for review Core Measures Measure exclusions: not indicated HPI General Mode of arrival: ambulatory. Date/Time Provider Initiated Documentation: 05/26/23 08:09. Limitations to Documentation: no limitations. Information obtained by: patient, RN notes reviewed and old records reviewed. HPI Narrative: 68-year-old female presents to the ER with a chief complaint of midepigastric abdominal pain which radiates into her back which began on Saturday morning. She reports that it waxes and wanes. She has tried some wgue-cry-vxhadhd Gaviscon or Tums equivalent with little to no relief on Saturday. She has not had any aspirin today. She does have a past medical history of hypertension, she is a former smoker 30 years ago, osteopenia, type 2 diabetes mellitus without complications, hyper lipidemia and low back pain. She endorses dizziness, feeling clammy no nausea vomiting diarrhea. No problems urinating or any other associated symptoms. Related Data Home Medications Medication Instructions Recorded Confirmed blood-glucose meter (Deehubsuch #1 ea 12/31/18 05/26/23 Verio Meter) multivit with minerals-ferrous 1 mg PO DAILY 01/19/19 05/26/23 sulfate 4.5 mg iron oral powder packet (One Daily Multivitamins with Minerals) latanoprost 0.005 % eye drops 1 drp ophthalmic (eye) QPM 06/29/19 05/26/23 timolol 0.25 % eye drops 1 drp ophthalmic (eye) BID 02/29/20 05/26/23 cetirizine 10 mg capsule (Zyrtec) 10 mg PO DAILY PRN allergy 12/18/21 05/26/23 symptoms #90 caps blood sugar diagnostic (OneTouch #50 ea 07/02/22 05/26/23 Verio test strips) lancets 33 gauge (OneTouch Delica #100 ea 07/02/22 05/26/23 Lancets) cyclobenzaprine 10 mg tablet 10 mg PO HS PRN muscle spasm #90 10/10/22 05/26/23 tabs fluticasone propionate 50 2 spray intranasal DAILY #16 grams 12/31/22 05/26/23 mcg/actuation nasal spray,suspension (Flonase Allergy Relief) lisinopril 10 mg tablet 10 mg PO DAILY #90 tabs 12/31/22 05/26/23 zolpidem 10 mg tablet 10 mg PO HS PRN insomnia #90 tabs 04/08/23 05/26/23 Previous Rx's Medication Instructions Recorded blood-glucose meter (OneTouch #1 ea 12/31/18 Verio Meter) cetirizine 10 mg capsule (Zyrtec) 10 mg PO DAILY PRN allergy 12/18/21 symptoms #90 caps blood sugar diagnostic (OneTouch #50 ea 07/02/22 Verio test strips) lancets 33 gauge (OneTouch Delica #100 ea 07/02/22 Lancets) cyclobenzaprine 10 mg tablet 10 mg PO HS PRN muscle spasm #90 10/10/22 tabs fluticasone propionate 50 2 spray intranasal DAILY #16 grams 12/31/22 mcg/actuation nasal spray,suspension (Flonase Allergy Relief) lisinopril 10 mg tablet 10 mg PO DAILY #90 tabs 12/31/22 zolpidem 10 mg tablet 10 mg PO HS PRN insomnia #90 tabs 04/08/23 Allergies Allergy/AdvReac Type Severity Reaction Status Date / Time procaine [From Novocain] Allergy Severe violent Verified 05/26/23 08:51 headache prednisone AdvReac Mild doesn't Verified 05/26/23 08:51 seem to work General Stated Complaint: Chest Pain ANNIA: 3 Review of Systems All systems reviewed & are unremarkable except as noted in HPI and below Cardiovascular Cardiovascular: Reports as per HPI, Reports chest pain, Reports chest pain at rest, Reports chest pain with activity (Pain gets worse when she moves), Denies leg edema and Reports radiating jaw, neck or arm pain (Back) Respiratory Respiratory: Denies cough, Denies hemoptysis and Denies wheezing Gastrointestinal Gastrointestinal: Reports abdominal pain (Midepigastric pain) and Reports bloating Allergic/Immunologic Allergic/Immunologic: Denies wheezing PFSH All Active Problems (Updated 05/26/23 @ 21:53 by Nneka Alston DO) Elevated bilirubin (Acute) Common bile duct dilatation (Acute) Choledocholithiasis (Acute) Seborrheic keratoses (Acute) Ex-smoker (Acute) Osteopenia (Acute) Type 2 diabetes mellitus without complications (Acute) Controlled with diet and exercise. Last A1c was 5.4 Joint stiffness (Acute) Joint pain (Acute) Osteoarthritis (Chronic) Colorectal polyp detected on colonoscopy (Acute ~02/09/19) DM (diabetes mellitus) (Chronic) Osteopenia (Acute) Hyperlipidemia (Acute) Essential hypertension (Acute) Low back pain (Acute) Medical History Allergic rhinitis Colon polyp Fatigue Fibrocystic breast Glaucoma Hypoglycemia Impaired fasting glucose Surgical History History of colonoscopy (~02/09/19) 2011- normal 2019- SSA and HP 2021 History of tonsillectomy History of tubal ligation Family History Father Diabetes Heart disease Mother No problems noted. Brother No problems noted. Sister No problems noted. Son No problems noted. Social History Smoking/Tobacco Use Status: Former Tobacco Use Tobacco: How many years used: 30 Quit status: quit date established (quit 20 yrs ago) Smoking risk assessment performed?: Yes Alcohol Intake: never Drug use: Never Substance use type: does not use Household members: spouse Housing: house Number of Children: 1 What type of physical activity do you participate in: other Details: Stairs, snow shoeing, house work Duration: > 90 minutes/day Frequency: 5-6 times per week Seatbelt use: always Drive intox or ride w/intox driver examiner: No Working smoke detector in home: Yes Carbon monox detector in home: Yes Do you feel safe at home: Yes Do you feel safe in your relationship?: Yes Exam Narrative Exam Narrative: Constitutional: Alert and oriented x3. Appears stated age. Normal body habitus. Head: Normocephalic, no trauma. Eyes: Pupils PERRL, Red reflex noted, EOM's intact. Eyelids symmetrical without lesions, discharge, or swelling. ENT: , External ear normal to inspection, no mastoid TTP, swelling, or erythema, no nasal discharge. Normal dentition, Chest: RRR, Normal S1, S2, distal pulses intact. See EKG. Resp: Lungs clear to auscultation bilaterally, no wheezes, rales, or rhonchi. Abdomen: Soft, non-distended, hypoactive bowel sounds all 4 quads. Musculoskeletal: Unable to assess gait 5/5 strength to all four extremities. No edema noted to her bilateral lower extremities. Skin: No suspicious rashes or lesions. Capillary refill less than 2 sec. Neurologic: Cranial nerves II-XII intact. Alert and oriented x 3. Motor: No deficits noted. Sensory: Intact bilaterally all 4 extremities. Reflexes: DTR's intact bilaterally.. Hematologic/Lymphatic: No ecchymosis, no lymphadenopathy. Course Vital Signs Vital signs: Vital Signs Temperature 36.8 C 05/26/23 08:04 Pulse 105 H 05/26/23 08:04 Respiratory Rate 18 05/26/23 08:04 Blood Pressure 128/75 05/26/23 08:04 Temperature 36.8 C 05/26/23 08:04 Temperature Source Oral 05/26/23 08:04 Pulse 105 H 05/26/23 08:04 Pulse 105 H 05/26/23 08:20 Respiratory Rate 18 05/26/23 08:20 Respiratory Effort Normal, Non-Labored 05/26/23 08:23 Respiratory Depth Normal 05/26/23 08:19 Respiratory Pattern Normal 05/26/23 08:19 Blood Pressure 128/75 05/26/23 08:04 Blood Pressure Position Sitting 05/26/23 08:04 Oxygen Delivery Method Room Air 05/26/23 08:04 Oxygen Flow Rate 0 05/26/23 08:04 Pain Level 7 05/26/23 08:04
[2023-05-26 08:31] LABS: Absolute Monocyte Count 1.67 10^3/uL (0.1-0.8); Absolute Neutrophil Count 8.63 10^3/uL (1.2-6.7)
[2023-05-26] MEDS: Aspirin 81 MG CHEW 324 MG CH (08:32)
[2023-05-26] MEDS: Mylanta Suspension 30 ML CUP PO (08:33)
[2023-05-26 08:45] LABS: ALT 481 U/L (14-59); AST 302 U/L (15-37); Albumin 3.6 g/dL (3.4-5.0); Alkaline Phosphatase 286 U/L (46-116); Anion Gap 10.9 mmol/L (3-11); BUN 11 mg/dL (7-18); Bilirubin, Total 4.7 mg/dL (0.2-1.0); CO2 27.1 mmol/L (21.0-32.0); CREATININE 0.8 mg/dL (0.55-1.02); Calcium 9.1 mg/dL (8.5-10.1); Chloride 102 mmol/L (98-107); Estimated GFR 79.22 (mL/min/1.73m2); Glucose 139 mg/dL (74-106); Lipase 27 U/L (16-77); Magnesium 1.7 mg/dL (1.8-2.4); Potassium 3.5 mmol/L (3.5-5.1); Sodium 140 mmol/L (136-145); Total Protein 7.6 g/dL (6.4-8.2); Troponin I < 50 ng/L (<or=60)
[2023-05-26 09:19] LABS: Diff Comment Agrees w/ Instrument; RBC Morphology Normal
[2023-05-26] MEDS: Normal Saline - Diluent 50 ML VIAL IJ (09:31)
[2023-05-26] MEDS: Omnipaque 350 MG/ML 100 ML BTL IJ (09:31)
[2023-05-26] MEDS: Normal Saline Flush 10 ML SYR IVP ×2 (09:35→13:48)
--- NOTE | 2023-05-26 10:03 | DI.VRAD_ITS ---
PROCEDURE INFORMATION: Exam: CT Chest With Contrast; Diagnostic Exam date and time: 05/26/2023 9:25 AM Age: 68 years old Clinical indication: Other: Midepigastric abd pain, R/O aaa TECHNIQUE: Imaging protocol: Diagnostic computed tomography of the chest with contrast. 3D rendering (Not supervised by radiologist): MIP and/or 3D reconstructed images were created by the technologist. Contrast material: OMNIPAQUE 350; Contrast volume: 100 ml; Contrast route: INTRAVENOUS (IV); COMPARISON: No relevant prior studies available. FINDINGS: Lungs: Unremarkable. No consolidation. No masses. Pleural spaces: Unremarkable. No pneumothorax. No pleural effusion. Heart: Unremarkable. No cardiomegaly. No pericardial effusion. Lymph nodes: Unremarkable. No enlarged lymph nodes. Vasculature: Unremarkable. No aortic aneurysm. Bones/joints: Unremarkable. No acute fracture. Soft tissues: Unremarkable. IMPRESSION: No thoracic aortic aneurysm PROCEDURE INFORMATION: Exam: CT Abdomen And Pelvis With Contrast Exam date and time: 05/26/2023 9:25 AM Age: 68 years old Clinical indication: Other: Midepigastric abd pain, R/O aaa TECHNIQUE: Imaging protocol: Computed tomography of the abdomen and pelvis with contrast. 3D rendering (Not supervised by radiologist): MIP and/or 3D reconstructed images were created by the technologist. Contrast material: OMNIPAQUE 350; Contrast volume: 100 ml; Contrast route: INTRAVENOUS (IV); COMPARISON: No relevant prior studies available. FINDINGS: Liver: Normal. No mass. Gallbladder and bile ducts: Common bile duct dilated to 12 mm, with intrahepatic ductal dilatation. No radiopaque ductal calculus identified. Smooth tapering to the ampulla is noted. Additional workup with MRCP suggested. Pancreas: No dilatation of the pancreatic duct. Spleen: Normal. No splenomegaly. Adrenal glands: Normal. No mass. Kidneys and ureters: Normal. No hydronephrosis. Stomach and bowel: Moderate stool burden in the proximal colon with cecum distended to 7 cm. No bowel obstruction. Appendix: No evidence of appendicitis. Intraperitoneal space: Unremarkable. No free air. No significant fluid collection. Vasculature: Unremarkable. No abdominal aortic aneurysm. Lymph nodes: Unremarkable. No enlarged lymph nodes. Urinary bladder: Unremarkable as visualized. Reproductive: Unremarkable as visualized. Bones/joints: Unremarkable. No acute fracture. Soft tissues: Unremarkable. IMPRESSION: 1. Common bile duct dilated to 12 mm, with intrahepatic ductal dilatation. No radiopaque ductal calculus identified. Smooth tapering to the ampulla is noted. Additional workup with MRCP suggested. 2. No abdominal aortic aneurysm. 3. Moderate stool burden in the proximal colon with cecum distended to 7 cm. No bowel obstruction. Dictated and Authenticated by: Emely Roberts MD. Ordering:CAMI Swartz MD
--- NOTE | 2023-05-26 10:12 | NUR.NOTE ---
Nursing Note: Pt AOx4 and comfortable in bed at time of report. Pt denies chest pain or further discomfort. Pt stated, I feel much better than I have for the last few days. Call light within reach and blankets provided for comfort. Pt thanked this RN for care.
--- NOTE | 2023-05-26 10:47 | HPE_ITS ---
Date of service: 05/26/23 Time of Service: 10:47 Assessment and Plan Assessment and plan (1) Common bile duct dilatation: Status: Acute Assessment and plan: I did review her CT scans. She does have extensive family history of gallstones. There are no masses seen in the pancreas or the common bile duct. I do not see any stones on her CT today. However her history is most consistent that she did pass a gallstone. We will plan on doing a ultrasound and an MRCP tomorrow She was started on Levaquin. We will repeat labs in a.m. Continue with supportive care. Depending what further testing shows she will either need a lap thomas versus an ERCP. Hopefully the stone will pass on its own and she will not require an ERCP. -Obviously cholangiocarcinoma or pancreatic carcinoma still is in the dif ferential. Pancreatic duct looks normal. There are no masses in the pancreas or the liver. Further recommendations to follow after adjuvant testing completed This document was created with voice activated software and may contain errors. 70 mins spent with the patient today. (2) Elevated bilirubin: Status: Acute (3) Ex-smoker: Status: Acute (4) Osteopenia: Status: Acute (5) Type 2 diabetes mellitus without complications: Status: Acute (6) Osteoarthritis: Status: Chronic (7) Hyperlipidemia: Status: Acute Qualifiers: Hyperlipidemia type: pure hypercholesterolemia Qualified Code(s): E78.00 - Pure hypercholesterolemia, unspecified; E78.0 - Pure hypercholesterolemia (8) Essential hypertension: Status: Acute (9) Low back pain: Status: Acute (10) Glaucoma: History of Present Illness Narrative: By the time I was able to see Vandana, she is feeling much more comfortable. She is not having the severe pain that she was down in the ER. She has occasionally had some issues with heartburn or indigestion, but nothing on a regular basis. She is never had anything this severe before. She does note that gallbladder disease runs extensively in her family. Her 90-year-old mother had to have her gallbladder out recently. She did have children. She has not noticed any fatty food intolerance. She states the pain started Yogesh night and has become progressively worse. Radiated to into her back. It was associated nausea vomiting. At this point it has let up. She is not feeling nauseous at this time. She did not vomit blood. She did not notice any blood in her stools. She has not been losing weight. She has noted her urine has been very dark-colored Her only surgeries have been tonsils/tubal/colonoscopy. She has had no problems with anesthesia. She has severe problems with local anesthetics to give her terrible headaches. She is a former smoker. She is not a diabetic. She is controlling with diet and exercise. Last A1c was 5.4 ed notes:68-year-old female presents to the ER with a chief complaint of midepigastric abdominal pain which radiates into her back which began on Saturday morning.? She reports that it waxes and wanes.? She has tried some rwzi-ral-rthwxmc Gaviscon or Tums equivalent with little to no relief on Saturday .? She has not had any aspirin today.? She does have a past medical history of hypertension, she is a former smoker 30 years ago, osteopenia, type 2 diabetes mellitus without complications, hyper lipidemia and low back pain. She endorses dizziness, feeling clammy no nausea vomiting diarrhea.? No problems urinating or any other associated symptoms. Review of Systems All systems reviewed & are unremarkable except as noted in HPI and below PFSH All Active Problems (Updated 05/26/23 @ 21:53 by Nneka Alston DO) Elevated bilirubin (Acute) Common bile duct dilatation (Acute) Choledocholithiasis (Acute) Seborrheic keratoses (Acute) Ex-smoker (Acute) Osteopenia (Acute) Type 2 diabetes mellitus without complications (Acute) Controlled with diet and exercise. Last A1c was 5.4 Joint stiffness (Acute) Joint pain (Acute) Osteoarthritis (Chronic) Colorectal polyp detected on colonoscopy (Acute ~02/09/19) DM (diabetes mellitus) (Chronic) Osteopenia (Acute) Hyperlipidemia (Acute) Essential hypertension (Acute) Low back pain (Acute) Medical History Allergic rhinitis Colon polyp Fatigue Fibrocystic breast Glaucoma Hypoglycemia Impaired fasting glucose Surgical History History of colonoscopy (~02/09/19) 2010- normal 2018- SSA and HP 2021 History of tonsillectomy History of tubal ligation Family History Father Diabetes Heart disease Mother No problems noted. Brother No problems noted. Sister No problems noted. Son No problems noted. 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 Working smoke detector in home: Yes Carbon monox detector in home: Yes Do you feel safe at home: Yes Do you feel safe in your relationship?: Yes Meds Allergies and Home Medications Allergies Allergy/AdvReac Type Severity Reaction Status Date / Time procaine [From Novocain] Allergy Severe violent Verified 05/26/23 08:51 headache prednisone AdvReac Mild doesn't Verified 05/26/23 08:51 seem to work Home Medications Medication Instructions Recorded Confirmed Type blood-glucose meter (ChinacarsTouch #1 ea 12/31/18 05/26/23 Rx Verio Meter) multivit with minerals-ferrous 1 mg PO DAILY 01/19/19 05/26/23 History sulfate 4.5 mg iron oral powder packet (One Daily Multivitamins with Minerals) latanoprost 0.005 % eye drops 1 drp ophthalmic (eye) QPM 06/29/19 05/26/23 History timolol 0.25 % eye drops 1 drp ophthalmic (eye) BID 02/29/20 05/26/23 History cetirizine 10 mg capsule (Zyrtec) 10 mg PO DAILY PRN allergy 12/18/21 05/26/23 Rx symptoms #90 caps blood sugar diagnostic (OneTouch #50 ea 07/02/22 05/26/23 Rx Verio test strips) lancets 33 gauge (OneTouch Delica #100 ea 07/02/22 05/26/23 Rx Lancets) cyclobenzaprine 10 mg tablet 10 mg PO HS PRN muscle spasm #90 10/10/22 05/26/23 Rx tabs fluticasone propionate 50 2 spray intranasal DAILY #16 grams 12/31/22 05/26/23 Rx mcg/actuation nasal spray,suspension (Flonase Allergy Relief) lisinopril 10 mg tablet 10 mg PO DAILY #90 tabs 12/31/22 05/26/23 Rx zolpidem 10 mg tablet 10 mg PO HS PRN insomnia #90 tabs 04/08/23 05/26/23 Rx Exam Const General: cooperative, healthy appearing, comfortable, no acute distress, well developed and well groomed Nutritional Appearance: average body habitus Orientation: alert, awake and oriented x3 Other: PHYSICAL EXAM GENERAL APPEARANCE: Alert, healthy appearance, oriented, x 3,? in no acute distress HYDRATION: Well hydrated HEAD, EYES, EARS, NECK, THROAT: Head is normocephalic, pupils equal, round, reactive to light and accommodation, ocular movement intact, sclera clear and no jaundice. ?Dentition intact. + jaundice NECK: ? No JVD LUNGS: normal respiration/normal chest excursion. ?Clear to auscultation bilaterally. ?No wheeze. ?HEART: Regular rate and rhythm. no murmurs EXTREMITY: No edema or cyanosis.? no leg pain, redness, swelling.? ABDOMEN: soft and non-tender to palpation.? Normal bowel sounds.? She was having intense right upper quadrant pain it is calm down at this point. She does have bowel sounds. Results Labs 05/26/23 08:22 05/26/23 08:22 Labs: Laboratory Results - last 24 hr 05/26/23 05/26/23 08:22 08:22 WBC 11.47 H RBC 3.96 Hgb 12.8 Hct 37.4 MCV 94 MCH 32.3 MCHC 34.2 RDW 12.8 Plt Count 289 MPV 9.6 Immature Gran % 0.4 Neutrophils % 75.2 Lymphocytes % 9.3 Monocytes % 14.6 Eosinophils % 0.1 Basophils % 0.4 Nucleated RBC % 0.0 Absolute Neutrophils 8.63 H Absolute Lymphocytes 1.07 L Absolute Monocytes 1.67 H Absolute Eosinophils 0.01 Absolute Basophils 0.05 RBC Morphology Normal Sodium 140 Potassium 3.5 Chloride 102 Carbon Dioxide 27.1 Anion Gap 10.9 BUN 11 Creatinine 0.8 Est GFR (CKD-EPI 2020) 79.22 Glucose 139 H Calcium 9.1 Magnesium 1.7 L Total Bilirubin 4.7 H AST 302 H ALT 481 H Alkaline Phosphatase 286 H Troponin I < 50 Total Protein 7.6 Albumin 3.6 Lipase 27 Last Vital Signs Temp 36.8 C 05/26/23 08:04 Pulse 81 05/26/23 09:46 Resp 16 05/26/23 10:12 BP 106/64 05/26/23 09:46 Pulse Ox 94 05/26/23 09:50 Time Spent Time spent with Patient: 55-74 minutes Time was spent: preparing to see the patient(eg.review tests), obtaining and/or reviewing separately otained hiistory, ordering medications,tests, procedures, referring, communicating with other health home care physical therapist, indepentently interpreting results, counseling the patient and care coordination
[2023-05-26 10:49] LABS: Amylase 36 U/L (25-115)
--- NOTE | 2023-05-26 11:00 | RT.EKG_ITS ---
APPROVED REPORT Exam: Resting ECG Reason for Exam: chest pain Patient Location: E HR:76 bpm ECG Measurements Heart Rate 76 AXIS WA 130 P 69 QRSd 83 QRS 35 QT 366 T 32 QTc 412 Conclusion Sinus rhythm...normal P axis, V-rate 60- 99 Low voltage, precordial leads...precordial leads <1.0mV Borderline ST depression, diffuse leads...ST <-0.07mV, ant/lat/inf
[2023-05-26 11:40] LABS: Troponin I < 50 ng/L (<or=60)
[2023-05-26] MEDS: Enoxaparin 40 MG/0.4 ML SYR SC (13:48)
[2023-05-26] MEDS: levoFLOXacin 500 MG/100 ML BAG 100 MG IVPB (13:49)
[2023-05-26] MEDS: Latanoprost 0.005% 2.5 ML BTL OU (19:40)
[2023-05-27 06:22] VITALS: BP 120/78; PULSE 73; RESP 18; TEMP 36.1; O2SAT 95
--- NOTE | 2023-05-27 07:00 | DI.MRI_ITS ---
Exam(s) MR ABDOMEN WO EXAM: MR ABDOMEN WO CLINICAL HISTORY: elevated jon/abnl CBD on CT/no stones TECHNIQUE: Multiplanar multisequence MRI of the Abdomen was performed. COMPARISON: CT CT CHEST/ABD/PEL W from 05/26/2023 FINDINGS: Liver: Unremarkable. Pancreas: Unremarkable. Gallbladder and Bile Ducts: There are multiple stones seen within the gallbladder. The gallbladder i s 3.3 cm in diameter. There is a trace amount of pericholecystic fluid. The common duct measures 1 cm. Several tiny stones are seen in the common bile duct. Adrenals: Unremarkable. Kidneys: Unremarkable. Spleen: Unremarkable. Bowel: Unremarkable. Aorta: Unremarkable. Soft Tissues: Unremarkable. Bone: Unremarkable. Lymph Nodes: Unremarkable. IMPRESSION: Cholelithiasis and extrahepatic biliary ductal dilatation. Trace amount of pericholecystic fluid. C holedocholithiasis is present. Consider acute cholecystitis. Please correlate clinically. DATA REPOSITORY:
--- NOTE | 2023-05-27 07:00 | DI.US_ITS ---
Exam(s) US ABDOMEN LIMITED EXAM: US ABDOMEN LIMITED CLINICAL HISTORY: gallstones TECHNIQUE: Ultrasound abdomen performed using standard protocol. COMPARISON: CT CT CHEST/ABD/PEL W from 05/26/2023 MR MR ABDOMEN WO from 05/27/2023 FINDINGS: PANCREAS: Normal where visualized. LIVER: Fatty infiltration. Hepatopedal flow in the Portal Vein. The liver measures in 15.1 cm length . GALLBLADDER:Multiple gallstones. There is sludge present. No evidence of wall thickening. No perich olecystic fluid identified. BILIARY SYSTEM: Common bile duct measures 1.1. There are stones seen within the cystic duct. BEE'S SIGN: Positive. RIGHT KIDNEY: Kidney is normal in size. No evidence of renal calculi. No evidence of hydronephrosis. No renal mass or cyst identified. ASCITES: None seen. ABDOMINAL AORTA AND IVC: Visualized portions normal caliber. IMPRESSION: Cholelithiasis and choledocholithiasis with a positive Bee sign. Findings are suspicious for acut e cholecystitis. DATA REPOSITORY:
[2023-05-27 07:14] LABS: Abs Immature Grans 0.03 10^3/uL (0.0-0.06); Absolute Basophil Count 0.04 10^3/uL (0.0-0.2); Absolute Eosinophil Count 0.23 10^3/uL (0.0-0.7); Absolute Lymphocyte Count 1.18 10^3/uL (1.2-3.4); Absolute Monocyte Count 0.67 10^3/uL (0.1-0.8); Basophils % 0.7; Eosinophils % 4.3; HCT 36.7 % (36.0-46.0); HGB 12.4 g/dL (11.2-15.7); Immature Grans % 0.6; Lymphocytes % 22.1; MCH 32.7 pg (27.0-33.0); MCHC 33.8 % (32.0-36.0); MCV 97 fL (80-95); MPV 9.7 fL (8.0-11.0); Monocytes % 12.5; Neutrophils % 59.8; Platelet Count 275 10^3/uL (130-400); RBC 3.79 10^6/uL (3.93-5.22); RDW 13.2 % (11.7-14.6); RDW-SD 46.7 fL; WBC 5.35 10^3/uL (4.4-10.8)
[2023-05-27 07:35] LABS: Lipase 23 U/L (16-77)
[2023-05-27 07:39] LABS: ALT 319 U/L (14-59); AST 114 U/L (15-37); Albumin 3.1 g/dL (3.4-5.0); Alkaline Phosphatase 236 U/L (46-116); Anion Gap 7.5 mmol/L (3-11); BUN 8 mg/dL (7-18); Bilirubin, Total 1.3 mg/dL (0.2-1.0); CO2 30.5 mmol/L (21.0-32.0); CREATININE 0.8 mg/dL (0.55-1.02); Calcium 9.1 mg/dL (8.5-10.1); Chloride 107 mmol/L (98-107); Estimated GFR 79.22 (mL/min/1.73m2); Glucose 98 mg/dL (74-106); Potassium 3.1 mmol/L (3.5-5.1); Sodium 145 mmol/L (136-145); Total Protein 6.8 g/dL (6.4-8.2)
[2023-05-27] MEDS: LORazepam 0.5 MG TAB PO (07:48)
[2023-05-27] MEDS: Polyethylene Glycol 3350 17 GM PACKET PO (09:07)
[2023-05-27] MEDS: Lisinopril 10 MG TAB PO (09:07)
[2023-05-27] MEDS: Potassium Chloride 20 MEQ TABCR 40 MEQ PO (10:00)
[2023-05-27] MEDS: levoFLOXacin 500 MG/100 ML BAG 100 MG IVPB (12:13)
[2023-05-27] MEDS: Acetaminophen 500 MG TAB 1000 MG PO ×2 (12:13→19:24)
[2023-05-27] MEDS: Enoxaparin 40 MG/0.4 ML SYR SC (13:37)
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
--- NOTE | 2023-05-27 14:20 | CHAPLAIN ---
Vandana was in bed when I visited. We had a brief visit. She's in touch with family and feeling comfortable being here. I explained my role and offered support.
--- NOTE | 2023-05-27 17:22 | W.PM.PROGNOT ---
Date of Service Date of service: 05/27/23 Time of Service: 16:00 Assessment and Plan Assessment and plan (1) Common bile duct dilatation: Status: Acute Assessment and plan: Vandana is a pleasant 68-year-old female who is feeling better today. Her MRCP did shows 3 stones in the common bile duct. The hope is that she will get an ERCP either tomorrow or Saturday and then she will be able to get her gallbladder out either or Saturday. I did discuss the ERCP could quickly with her and the fact that she would need to go down to [facility] for it. She is in agreement with this plan. I will give her a full liquid low-fat diet today and then n.p.o. again at midnight just in case that she is able to go down to [facility]. I will call [facility] in the morning to see where we are at with getting her down there if she is unable to go until Saturday then I will restart her diet. (2) Elevated bilirubin: Status: Acute (3) Ex-smoker: Status: Acute (4) Osteopenia: Status: Acute (5) Type 2 diabetes mellitus without complications: Status: Acute (6) Osteoarthritis: Status: Chronic (7) Hyperlipidemia: Status: Acute Qualifiers: Hyperlipidemia type: pure hypercholesterolemia Qualified Code(s): E78.00 - Pure hypercholesterolemia, unspecified; E78.0 - Pure hypercholesterolemia (8) Essential hypertension: Status: Acute (9) Low back pain: Status: Acute (10) Glaucoma: Subjective Subjective Interval history since last seen: Vandana is a pleasant 68-year-old female who was admitted yesterday with hyperbilirubinemia and dilated common bile duct. She had an ultrasound and MRCP done today which showed multiple stones within her gallbladder as well as 3 stones in her common bile duct. She is doing okay. She does feel a little hungry and has been tolerating clear liquids. I explained the findings of her MRI and ultrasound and the need for an ERCP down at [facility] to remove those stones. Dr. Alston was able to talk to gastroenterology down at [facility]. They thought maybe they could get her in tomorrow for the procedure but more than likely would be Saturday. Her labs do look better today. She does not have a white count and her bilirubin is down to 1.6. Exam Const General: cooperative, comfortable and no acute distress Nutritional Appearance: average body habitus Orientation: alert and oriented x3 HENMT Head: normocephalic and atraumatic Resp Effort & Inspection: normal respiratory effort Auscultation: clear to auscultation bilaterally Cardio Rate: regular rate Rhythm: regular rhythm GI Palpation: soft, no hepatosplenomegaly and nontender Objective Last Vital Signs Temp 97.0 F L 05/27/23 06:22 Pulse 73 05/27/23 06:22 Resp 18 05/27/23 06:22 BP 120/78 05/27/23 06:22 Pulse Ox 95 05/27/23 06:22 Laboratory Results - last 24 hr 05/27/23 05/27/23 05/27/23 06:50 06:50 06:50 WBC 5.35 RBC 3.79 L Hgb 12.4 Hct 36.7 MCV 97 H MCH 32.7 MCHC 33.8 RDW 13.2 Plt Count 275 MPV 9.7 Immature Gran % 0.6 Neutrophils % 59.8 Lymphocytes % 22.1 Monocytes % 12.5 Eosinophils % 4.3 Basophils % 0.7 Nucleated RBC % 0.0 Absolute Neutrophils 3.20 Absolute Lymphocytes 1.18 L Absolute Monocytes 0.67 Absolute Eosinophils 0.23 Absolute Basophils 0.04 Sodium 145 Potassium 3.1 L Chloride 107 Carbon Dioxide 30.5 Anion Gap 7.5 BUN 8 Creatinine 0.8 Est GFR (CKD-EPI 2020) 79.22 Glucose 98 Calcium 9.1 Total Bilirubin 1.3 H AST 114 H ALT 319 H Alkaline Phosphatase 236 H Total Protein 6.8 Albumin 3.1 L Lipase 23 Time Spent with Patient Time Spent with Patient: 25-34 minutes Time was spent: preparing to see the patient(eg.review tests), obtaining and/or reviewing separately otained hiistory, ordering medications,tests, procedures, referring, communicating with other health infant childcare provider, indepentently interpreting results and counseling the patient
[2023-05-27 18:07] LABS: CEA 1.2 ng/mL (See Note)
[2023-05-27 19:55] VITALS: BP 136/79; PULSE 70; RESP 18; TEMP 36.4; O2SAT 96
[2023-05-27] MEDS: Latanoprost 0.005% 2.5 ML BTL OU (21:01)
[2023-05-27] MEDS: Zolpidem 10 MG TAB PO (21:01)
[2023-05-28 03:20] VITALS: BP 128/76; PULSE 74; RESP 18; TEMP 36.1; O2SAT 97
[2023-05-28 07:25] VITALS: BP 116/76; PULSE 70; RESP 16; TEMP 36.4; O2SAT 95
[2023-05-28] MEDS: Lisinopril 10 MG TAB PO (08:01)
[2023-05-28] MEDS: Polyethylene Glycol 3350 17 GM PACKET PO (08:02)
--- NOTE | 2023-05-28 09:25 | PDOC.CMIN ---
Date of service: 05/28/23 Time of Service: 09:25 [facility] All Active Problems (Updated 05/26/23 @ 21:53 by Nneka Alston DO) Elevated bilirubin (Acute) Common bile duct dilatation (Acute) Choledocholithiasis (Acute) Seborrheic keratoses (Acute) Ex-smoker (Acute) Osteopenia (Acute) Type 2 diabetes mellitus without complications (Acute) Controlled with diet and exercise. Last A1c was 5.4 Joint stiffness (Acute) Joint pain (Acute) Osteoarthritis (Chronic) Colorectal polyp detected on colonoscopy (Acute ~02/09/19) DM (diabetes mellitus) (Chronic) Osteopenia (Acute) Hyperlipidemia (Acute) Essential hypertension (Acute) Low back pain (Acute) Medical History Allergic rhinitis Colon polyp Fatigue Fibrocystic breast Glaucoma Hypoglycemia Impaired fasting glucose Surgical History History of colonoscopy (~02/09/19) 2010- normal 2018- SSA and HP 2021 History of tonsillectomy History of tubal ligation Family History Father Diabetes Heart disease Mother No problems noted. Brother No problems noted. Sister No problems noted. Son No problems noted. 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
--- NOTE | 2023-05-28 10:54 | PGE_ITS ---
Date of Service Date of service: 05/28/23 Time of Service: 10:55 Assessment and Plan Assessment and plan (1) Common bile duct dilatation: Status: Acute Assessment and plan: MRCP from 05/27 showed 3 stones which were located in the common bile duct. Called and spoke with the [facility] transfer center today regarding down and back for ERCP. They state that she is on the schedule for tomorrow 05/29 and they will call in the morning regarding the time of her needed arrival. She will be n.p.o. after midnight. For today she can have full liquids. Currently pain is well controlled. Encouraged her to sit in the chair throughout the day as well as ambulating within the hallways. P// ERCP at [facility] tomorrow. (2) Elevated bilirubin: Status: Acute (3) Ex-smoker: Status: Acute (4) Osteopenia: Status: Acute (5) Type 2 diabetes mellitus without complications: Status: Acute (6) Osteoarthritis: Status: Chronic (7) Hyperlipidemia: Status: Acute Qualifiers: Hyperlipidemia type: pure hypercholesterolemia Qualified Code(s): E78.00 - Pure hypercholesterolemia, unspecified; E78.0 - Pure hypercholesterolemia (8) Essential hypertension: Status: Acute (9) Low back pain: Status: Acute (10) Glaucoma: Subjective Subjective Interval history since last seen: Vandana states she is feeling well this morning. She states that she had some discomfort last night after having some tomato soup which subsided within 30 minutes of having some Tylenol. She denies any nausea, vomiting or GI upset this morning. Exam Const General: cooperative, healthy appearing and comfortable Orientation: alert and oriented x3 Resp Effort & Inspection: normal respiratory effort, no audible wheezes and no cough Objective Last Vital Signs Temp 36.4 C L 05/28/23 07:25 Pulse 70 05/28/23 07:25 Resp 16 05/28/23 07:25 BP 116/76 05/28/23 07:25 Pulse Ox 95 05/28/23 07:25 Laboratory Results - last 24 hr 05/27/23 06:50 Carcinoembryonic Ag 1.2 Time Spent with Patient Time Spent with Patient: <25 minutes Time was spent: obtaining and/or reviewing separately otained hiistory, ordering medications,tests, procedures, referring, communicating with other health pediatric care coordinator, indepentently interpreting results, counseling the patient and care coordination
--- NOTE | 2023-05-28 10:54 | PDOC.CMPRO ---
Date of service: 05/28/23 Time of Service: 10:55 Care Management Progress Note Progress Note Text Progress Note Text: S/O: Vandana reports feeling better today, she is happy with her care and hospital course thus far. She verbalizes understanding of her treatment plan and shares no concerns at this time. She will leave in the morning for a ERCP at [facility] prior to returning to [facility]. She is hopeful she will have her gallbladder removed later this week; she describes not having much of an appetite. . A: 68 year old female admitted to [facility] 05/26/23 for abdominal pain, elevated bilirubin and dilated CBD P: ERCP down and back at [facility] tomorrow morning, Vandana will be NPO after midnight. CM continues to follow.
[2023-05-28] MEDS: levoFLOXacin 500 MG/100 ML BAG 100 MG IVPB (12:00)
[2023-05-28] MEDS: Enoxaparin 40 MG/0.4 ML SYR SC (13:11)
[2023-05-28] MEDS: Zolpidem 10 MG TAB PO (21:21)
[2023-05-28] MEDS: Latanoprost 0.005% 2.5 ML BTL OU (21:21)
[2023-05-29] VITALS: BP 120/78; PULSE 75; RESP 16; TEMP 36.1; O2SAT 95
[2023-05-29 07:02] VITALS: BP 124/79; PULSE 65; RESP 16; TEMP 36.3; O2SAT 96
[2023-05-29] MEDS: Lisinopril 10 MG TAB PO (07:38)
[2023-05-29] MEDS: Normal Saline Flush 10 ML SYR IVP (08:35)
--- NOTE | 2023-05-29 10:02 | CMPROGNOTE_ITS ---
Date of service: 05/29/23 Time of Service: 10:02 Care Management Progress Note Progress Note Text Progress Note Text: S/O: Vandana will go to [facility] for a down and back ERCP procedure today. She will transport via EMS, coordinated by RN Psychologist Developmental. CM will continue to follow. A: 68 year old female admitted to [facility] 05/26/23 for abdominal pain, elevated bilirubin and dilated CBD P: ERCP down and back at [facility] today. CM continues to follow.
--- NOTE | 2023-05-29 10:02 | PDOC.CMPRO ---
Date of service: 05/29/23 Time of Service: 10:02 Care Management Progress Note Progress Note Text Progress Note Text: S/O: Vandana will go to [facility] for a down and back ERCP procedure today. She will transport via EMS, coordinated by RN Treatment Specialist. CM will continue to follow. A: 68 year old female admitted to [facility] 05/26/23 for abdominal pain, elevated bilirubin and dilated CBD P: ERCP down and back at [facility] today. CM continues to follow.
[2023-05-29 11:00] LABS: CA 19-9 37 U/mL (<35)
[2023-05-29 14:51] VITALS: BP 162/91; PULSE 90; TEMP 36.6; O2SAT 94
[2023-05-29] MEDS: Enoxaparin 40 MG/0.4 ML SYR SC (15:22)
[2023-05-29] MEDS: levoFLOXacin 500 MG/100 ML BAG 100 MG IVPB (15:22)
--- NOTE | 2023-05-29 15:43 | PGE_ITS ---
Date of Service Date of service: 05/29/23 Time of Service: 15:43 Assessment and Plan Assessment and plan (1) Choledocholithiasis: Status: Acute Assessment and plan: Status post ERCP and removal of Common bile duct stones. She is looking good and feels well. I will check labs on her tomorrow and as long as everything looks good we will schedule for a Cholecystectomy on Saturday afternoon. Start on a Heart Healthy regular diet Subjective Subjective Interval history since last seen: Vandana is back from [facility] were she underwent an ERCP. She is feeling well. She initially had some discomfort but that has now completely resolved. Exam Const General: cooperative, comfortable and no acute distress HENMT Head: normocephalic and atraumatic Resp Effort & Inspection: normal respiratory effort Auscultation: clear to auscultation bilaterally Cardio Rate: regular rate Rhythm: regular rhythm Heart Sounds: no gallops, no murmurs and no rubs GI Palpation: soft, no hepatosplenomegaly and nontender Objective Last Vital Signs Temp 97.9 F 05/29/23 14:51 Pulse 90 05/29/23 14:51 Resp 16 05/29/23 07:02 BP 162/91 H 05/29/23 14:51 Pulse Ox 94 05/29/23 14:51 Laboratory Results - last 24 hr 05/27/23 06:50 CA 19-9 Antigen 37 H Time Spent with Patient Time Spent with Patient: <25 minutes Time was spent: preparing to see the patient(eg.review tests), obtaining and/or reviewing separately otained hiistory, indepentently interpreting results and counseling the patient
[2023-05-29 15:46] VITALS: BP 132/80
[2023-05-29] MEDS: Latanoprost 0.005% 2.5 ML BTL OU (20:29)
[2023-05-29] MEDS: Zolpidem 10 MG TAB PO (22:09)
[2023-05-29 23:33] VITALS: BP 106/69; PULSE 85; RESP 19; TEMP 36; O2SAT 95
[2023-05-30 07:10] VITALS: BP 136/82; PULSE 95; RESP 17; TEMP 37; O2SAT 96
[2023-05-30] MEDS: Lisinopril 10 MG TAB PO (07:58)
[2023-05-30] MEDS: Normal Saline Flush 10 ML SYR IVP ×2 (07:58→16:18)
[2023-05-30] MEDS: Polyethylene Glycol 3350 17 GM PACKET PO (07:58)
--- NOTE | 2023-05-30 08:49 | PGE_ITS ---
Date of Service Date of service: 05/30/23 Time of Service: 08:49 Assessment and Plan Assessment and plan (1) Choledocholithiasis: Status: Acute Assessment and plan: Status post ERCP on 05/29 and removal of Common bile duct stones. She describes feeling well and is eager to eat breakfast. Awaiting morning labs. Encouraged ambulation and sitting in the chair throughout the day Pulmonary toilet Anticipating laparoscopic cholecystectomy on Saturday, if everything continues to go well. -pt ws in shower today Subjective Subjective Interval history since last seen: Patient reports she is feeling well. She is eager to have breakfast this morning. She is feeling relief from her discomfort, but also is feeling reassured she was able to speak with her insurance and confirmed coverage and what her responsibility would be after billing. Exam Const General: cooperative, healthy appearing and comfortable Orientation: alert and oriented x3 Resp Effort & Inspection: normal respiratory effort, no audible wheezes and no cough Objective Last Vital Signs Temp 37.0 C 05/30/23 07:10 Pulse 95 H 05/30/23 07:10 Resp 17 05/30/23 07:10 BP 136/82 05/30/23 07:10 Pulse Ox 96 05/30/23 07:10 Laboratory Results - last 24 hr 05/27/23 06:50 CA 19-9 Antigen 37 H Time Spent with Patient Time Spent with Patient: <25 minutes Time was spent: ordering medications,tests, procedures, referring, communicating with other health childcare administrator, indepentently interpreting results and care coordination
[2023-05-30] MEDS: Acetaminophen 500 MG TAB 1000 MG PO (14:00)
[2023-05-30] MEDS: Enoxaparin 40 MG/0.4 ML SYR SC (14:00)
[2023-05-30 15:05] VITALS: BP 131/74; PULSE 77; RESP 17; TEMP 37.1; O2SAT 95
--- NOTE | 2023-05-30 15:52 | PDOC.CMPRO ---
Date of service: 05/30/23 Time of Service: 15:52 Care Management Progress Note Progress Note Text Progress Note Text: S/O: Vandana is s/p ERCP yesterday as well as removal of common bile duct stones. She is feeling well and her appetite has returned. Per MD, anticipate lap thomas on Saturday. CM continues to follow. A: 68 year old female admitted to [facility] 05/26/23 for elevated bilirubin, dilation CBD, abdominal pain P: Vandana will return home when ready per MD, lap thomas tentatively planned for tomorrow. CM continues to follow.
[2023-05-30] MEDS: levoFLOXacin 500 MG/100 ML BAG 100 MG IVPB (16:17)
[2023-05-30] MEDS: Latanoprost 0.005% 2.5 ML BTL OU (20:33)
[2023-05-30] MEDS: Zolpidem 10 MG TAB PO (23:39)
[2023-05-30] MEDS: Lactated Ringers 1,000 ML 100 ML IV (23:40)
[2023-05-30 23:49] VITALS: BP 139/80; PULSE 80; RESP 17; TEMP 36.6; O2SAT 97
[2023-05-31] VITALS (13 sets, daily range): BP systolic 96–146; BP diastolic 57–86; PULSE 75–98; RESP 15–20; TEMP 36.2–37.5; O2SAT 92–99; BMI 29.2
[2023-05-31 07:16] LABS: ALT 154 U/L (14-59); AST 52 U/L (15-37); Albumin 3.5 g/dL (3.4-5.0); Alkaline Phosphatase 264 U/L (46-116); Anion Gap 10.6 mmol/L (3-11); BUN 14 mg/dL (7-18); Bilirubin, Total 0.7 mg/dL (0.2-1.0); CO2 25.4 mmol/L (21.0-32.0); CREATININE 0.8 mg/dL (0.55-1.02); Calcium 9.5 mg/dL (8.5-10.1); Chloride 104 mmol/L (98-107); Estimated GFR 79.22 (mL/min/1.73m2); Glucose 107 mg/dL (74-106); Lipase 42 U/L (16-77); Potassium 4.1 mmol/L (3.5-5.1); Sodium 140 mmol/L (136-145); Total Protein 7.6 g/dL (6.4-8.2)
--- NOTE | 2023-05-31 08:08 | PGE_ITS ---
Date of Service Date of service: 05/31/23 Time of Service: 08:08 Assessment and Plan Assessment and plan (1) Choledocholithiasis: Status: Acute Assessment and plan: Status post ERCP on 05/29 and removal of Common bile duct stones. NPO Laparoscopic Cholecystectomy later today Patient seen and examined after her attempted Lap. Bambi. The procedure was aborted secondary to no visualization secondary to inflammation. She is feeling OK. She has tolerated some snacks. She has some mild tenderness just to the right of the umbilicus. ABDo is soft, ND, mildly tender to deep pa lpation. Patient would like to go home. Will discharge and have her follow up in 2 weeks Subjective Subjective Interval history since last seen: Patient reports that she is feeling well this morning. She is eagerly awaiting her procedure later today. Exam Const General: cooperative, healthy appearing and comfortable Orientation: alert and oriented x3 Resp Effort & Inspection: normal respiratory effort, no audible wheezes and no cough GI Inspection: normal to inspection Objective Last Vital Signs Temp 36.5 C 05/31/23 07:34 Pulse 82 05/31/23 07:34 Resp 16 05/31/23 07:34 BP 123/71 05/31/23 07:34 Pulse Ox 96 05/31/23 07:34 Laboratory Results - last 24 hr 05/31/23 06:06 Sodium 140 Potassium 4.1 Chloride 104 Carbon Dioxide 25.4 Anion Gap 10.6 BUN 14 Creatinine 0.8 Est GFR (CKD-EPI 2020) 79.22 Glucose 107 H Calcium 9.5 Total Bilirubin 0.7 AST 52 H ALT 154 H Alkaline Phosphatase 264 H Total Protein 7.6 Albumin 3.5 Lipase 42 Time Spent with Patient Time Spent with Patient: 25-34 minutes Time was spent: indepentently interpreting results and counseling the patient
[2023-05-31] MEDS: Lisinopril 10 MG TAB PO (08:44)
[2023-05-31] MEDS: Lactated Ringers 1,000 ML 100 ML IV (10:13)
--- NOTE | 2023-05-31 12:04 | W.ANESPRE ---
General Info Date of Service Date Performed: 05/31/23 Height: 5 ft 1 in Weight: 70.307 kg Body Mass Index (BMI): 29.2 Surgical Procedure: Operation Date: 05/31/23 13:40 Proposed Procedure Side Surgeon p Cholecystectomy Laparoscopic Nneka Alston, Meds Allergies and Home Medications Allergies Allergy/AdvReac Type Severity Reaction Status Date / Time procaine [From Novocain] Allergy Severe violent Verified 05/26/23 08:51 headache prednisone AdvReac Mild doesn't Verified 05/26/23 08:51 seem to work Home Medication Medication Instructions Recorded blood-glucose meter ([employer] SystemsTouch #1 ea 12/31/18 Verio Meter) multivit with minerals-ferrous 1 mg PO DAILY 01/19/19 sulfate 4.5 mg iron oral powder packet (One Daily Multivitamins with Minerals) latanoprost 0.005 % eye drops 1 drp ophthalmic (eye) QPM 06/29/19 timolol 0.25 % eye drops 1 drp ophthalmic (eye) BID 02/29/20 cetirizine 10 mg capsule (Zyrtec) 10 mg PO DAILY PRN allergy 12/18/21 symptoms #90 caps blood sugar diagnostic (OneTouch #50 ea 07/02/22 Verio test strips) lancets 33 gauge (OneTouch Delica #100 ea 07/02/22 Lancets) cyclobenzaprine 10 mg tablet 10 mg PO HS PRN muscle spasm #90 10/10/22 tabs fluticasone propionate 50 2 spray intranasal DAILY #16 grams 12/31/22 mcg/actuation nasal spray,suspension (Flonase Allergy Relief) lisinopril 10 mg tablet 10 mg PO DAILY #90 tabs 12/31/22 zolpidem 10 mg tablet 10 mg PO HS PRN insomnia #90 tabs 04/08/23 Current Visit Medications: Current Medications Generic Name Dose Route Start Last Admin Trade Name Freq PRN Reason Stop Dose Admin Acetaminophen 1,000 mg 05/26/23 10:28 05/30/23 14:00 Acetaminophen 500 Mg Tab PO 1,000 mg Q6H PRN PRN Administration Abdominal Pain Enoxaparin Sodium 40 mg 05/26/23 14:00 05/30/23 14:00 Enoxaparin 40 Mg/0.4 Ml Syr SC 40 mg Q24H DEDE Administration Sodium Chloride 500 mls @ 0 mls/hr 05/26/23 10:28 Saline 500ml Bag IV PRN PRN As Directed Levofloxacin 500 mg in 100 mls @ 100 mls/hr 05/29/23 16:00 05/30/23 17:20 Levaquin Premixed Bag IVPB Infused Q24H DEDE Infusion Cefazolin Sodium/Dextrose 1 gm in 50 mls @ 100 mls/hr 05/30/23 18:00 Ancef Duplex IV 05/31/23 23:59 POWER TOOL REPAIR TECHNICIAN DEDE Ringer's Solution 1,000 mls @ 100 mls/hr 05/31/23 00:00 05/31/23 10:13 IV 100 mls/hr INFUSION DEDE Administration IV Miscellaneous Supplies 1 each 05/26/23 10:30 Iv Access IV DIRECTED DEDE Latanoprost 0 ml 05/26/23 20:00 05/30/23 20:33 Latanoprost 0.005% 2.5 Ml Btl OU 1 drp QPM DEDE Administration Lisinopril 10 mg 05/27/23 08:30 05/31/23 08:44 Lisinopril 10 Mg Tab PO 10 mg DAILY DEDE Administration Morphine Sulfate 2 mg 05/26/23 10:28 Morphine 2 Mg/Ml Syr IVP Q1H PRN PRN Ondansetron HCl 4 mg 05/26/23 10:28 Ondansetron 4 Mg/2 Ml Vial IVP Q4H PRN PRN Polyethylene Glycol 17 gm 05/27/23 08:30 05/31/23 09:29 Polyethylene Glycol 3350 17 Gm Packet PO Not Given DAILY DEDE Sodium Chloride 0 ml 05/26/23 08:10 05/30/23 16:18 Normal Saline Flush 10 Ml Syr IVP 10 ml PRN PRN Administration Sodium Chloride 0 ml 05/26/23 10:28 Normal Saline Flush 10 Ml Syr IVP PRN PRN Timolol Maleate 0 ml 05/26/23 20:00 05/31/23 08:43 Timolol 0.25% 5 Ml Btl OU 2 drp BID DEDE Administration Zolpidem Tartrate 10 mg 05/26/23 10:45 05/30/23 23:39 Zolpidem 10 Mg Tab PO 10 mg HS PRN PRN Administration insomnia PFSH Active Problems Active Problems: Problem Status Onset Code Elevated bilirubin R17 Common bile duct dilatation K83.8 Choledocholithiasis K80.50 Seborrheic keratoses L82.1 Ex-smoker Z87.891 Osteopenia M85.80 Type 2 diabetes mellitus without complications E11.9 Joint stiffness M25.60 Joint pain M25.50 Osteoarthritis M19.90 Colorectal polyp detected on colonoscopy ~02/09/19 K63.5 DM (diabetes mellitus) E11.9 Osteopenia M85.80 Hyperlipidemia E78.5 Essential hypertension I10 Low back pain M54.5 Medical History Medical History (Updated 05/26/23 @ 21:53 by Nneka Alston, DO) Allergic rhinitis Colon polyp Fatigue Fibrocystic breast Glaucoma Hypoglycemia Impaired fasting glucose Medical History Comments:: Patient reports post nasal drip occ. and signifigant allergies particularly at this time of year. Surgical History Surgical History (Updated 05/30/23 @ 16:25 by Stephanie Saunders LPN) H/O endoscopy (~05/29/23) 05/29/23 Suspected Bile Duct Stones per report History of colonoscopy (~02/09/19) 2010- normal 2019- SSA and HP 2021 History of tonsillectomy History of tubal ligation Tobacco Smoking/Tobacco Use Status: Former Tobacco Use Alcohol Alcohol Intake: never Substance Use Substance use: Never Substance use type: does not use Vital Signs and Lab Results Vital Signs Most Recent Vital Signs in EMR: Most Recent Vital Signs Temp Pulse Resp BP Pulse Ox 36.6 C 80 16 142/80 H 95 05/31/23 11:37 05/31/23 11:37 05/31/23 11:37 05/31/23 11:37 05/31/23 11:37 Lab Results 05/27/23 06:50 05/31/23 06:06 Blood Type / Crossmatch: No Data to Display Complete Blood Count: White Blood Count 5.35 10^3/uL (4.4-10.8) 05/27/23 06:50 Red Blood Count 3.79 10^6/uL (3.93-5.22) L 05/27/23 06:50 Hemoglobin 12.4 g/dL (11.2-15.7) 05/27/23 06:50 Hematocrit 36.7 % (36.0-46.0) 05/27/23 06:50 Platelet Count 275 10^3/uL (130-400) 05/27/23 06:50 Complete Metabolic Panel: Sodium 140 mmol/L (136-145) 05/31/23 06:06 Potassium 4.1 mmol/L (3.5-5.1) 05/31/23 06:06 Chloride 104 mmol/L (98-107) 05/31/23 06:06 Carbon Dioxide 25.4 mmol/L (21.0-32.0) 05/31/23 06:06 BUN 14 mg/dL (7-18) 05/31/23 06:06 Creatinine 0.8 mg/dL (0.55-1.02) 05/31/23 06:06 Est GFR (CKD-EPI 2020) 79.22 (mL/min/1.73m2) 05/31/23 06:06 Magnesium 1.7 mg/dL (1.8-2.4) L 05/26/23 08:22 Calcium 9.5 mg/dL (8.5-10.1) 05/31/23 06:06 Albumin 3.5 g/dL (3.4-5.0) 05/31/23 06:06 Glucose 107 mg/dL (74-106) H 05/31/23 06:06 Liver Function Panel: Alanine Aminotransferase (ALT/SGPT) 154 U/L (14-59) H 05/31/23 06:06 Aspartate Amino Transf (AST/SGOT) 52 U/L (15-37) H 05/31/23 06:06 Coagulation Panel: No Data to Display Cardiac Panel: Troponin I < 50 ng/L (<or=60) 05/26/23 Arterial Blood Gas: No Data to Display Venous Blood Gas: No Data to Display Pancreas Panel: Amylase Level 36 U/L (25-115) 05/26/23 08:22 Lipase 42 U/L (16-77) 05/31/23 06:06 Thyroid Panel: No Data to Display Infectious Disease: No Data to Display Blood Cultures: No Data to Display Toxicology Panel: No Data to Display Anesthesia Assessment and Plan Anesthesia History Personal History: No History of Anesthesia Complications Family History: No Family History of Anesthesia Complications Exercise Tolerance Exercise Tolerance: Metabolic Equivalents>4 Pertinent Negatives Pertinent Negatives: No Symptoms of GERD Cardiac & Pulmonary Exam Cardiac Exam: Normal S1/S2 Heart Sounds Pulmonary Exam: Clear Bilateral Breath Sounds Implantable Cardiac Device Does patient have a Pacemaker or an ICD?: No Airway Exam Known Difficult Airway: No Mallampati Class: 2 Mouth Opening: Narrow (< 3cm) Thyromental Distance: Less than 3 cm Neck Range of Motion: Full ROM Neck Circumference: Normal Teeth Condition: Normal Dentition ASA Classification ASA Score: ASA 2 Emergency Case?: No NPO Status NPO Status: NPO Clears >2 hours, Solids >8 hours Anesthesia Plan Resuscitation Status: Full Code Anesthesia Technique: General Anesthesia Airway Planned: Endotracheal Tube Monitors Used: Standard Monitors
--- NOTE | 2023-05-31 12:07 | PGE_ITS ---
Date of Service Date of service: 05/31/23 Time of Service: 12:14 Assessment and Plan Assessment and plan (1) Choledocholithiasis: Status: Acute Assessment and plan: The alternatives to surgery, risks, complications, and the possible need to convert to open cholecystectomy were discussed. Also bleeding, infection, pneumonia, blood clots, complications of anesthesia, damage to bowel, bladder, blood vessels, or bile ducts, liver, need for blood transfusions. Also: chronic pain, chronic diarrhea/post-thomas syndrome, reoccurrence of signs and symptoms, port site hernias, adhesions.? All questions were answered and the patient elected to proceed with surgery Subjective Subjective Interval history since last seen: pt is here today for GB removal. Pain is resulved. labs revolved. No prior surgery noproblems w/ anethesia. Objective Last Vital Signs Temp 36.6 C 05/31/23 11:37 Pulse 80 05/31/23 11:37 Resp 16 05/31/23 11:37 BP 142/80 H 05/31/23 11:37 Pulse Ox 95 05/31/23 11:37 Laboratory Results - last 24 hr 05/31/23 06:06 Sodium 140 Potassium 4.1 Chloride 104 Carbon Dioxide 25.4 Anion Gap 10.6 BUN 14 Creatinine 0.8 Est GFR (CKD-EPI 2020) 79.22 Glucose 107 H Calcium 9.5 Total Bilirubin 0.7 AST 52 H ALT 154 H Alkaline Phosphatase 264 H Total Protein 7.6 Albumin 3.5 Lipase 42 Time Spent with Patient Time Spent with Patient: <25 minutes Time was spent: preparing to see the patient(eg.review tests), obtaining and/or reviewing separately otained hiistory, ordering medications,tests, procedures, referring, communicating with other health memory care program resident, indepentently interpreting results, counseling the patient and care coordination
[2023-05-31] MEDS: Bupivacaine 0.25% Pres-Free 30 ML VIAL (13:04)
--- NOTE | 2023-05-31 13:35 | ROE_ITS ---
Date of service: 05/31/23 Time of Service: 13:35 Operative Note Operative Note DATE OF PROCEDURE: 05/31/23 PRE-OP DIAGNOSIS: choledocholithiasis POST-OP DIAGNOSIS: same PROCEDURE: attempted lap thomas /procedure aborted SURGEON: Nneka Alston TELEPHONE SALES AGENT: Renata May ANESTHESIA TYPE: Local By Surgeon and General LMA/ETT Refer to Anesthesia Record ESTIMATED BLOOD LOSS: 2 PATHOLOGY: other COMPLICATIONS: None Patient was transported to: PACU Patient's condition: stable Procedure Description: INDICATIONS: Patient was admitted through the ER with choledocholithiasis. She ERCP without stent placement uneventfully. Her labs have normalized. She has no fever or white count. And she is brought to the OR today for lap for scopic cholecystectomy.. Informed consent was obtained, explaining risks and benefits of the procedure including but not limited to bleeding, infection, pneumonia, blood clots, possible damage to bowel, bladder, blood vessels, bile ducts, possible open procedure, complications of general anesthesia and other unforetold complications. PROCEDURE: The patient agrees and is brought to the operative room suite and placed in supine position. Anesthesia was administered per the Department of Anesthesia. The patient did receive IV antibiotics. NG tube and Palmer catheter are placed. The patient was prepped and draped in the usual sterile fashion using DuraPrep scrub solution. Pause for the cause was done. 20 mL of 1% buffered lidocaine was used for local anesthetization. A stab incision was made in the umbilicus and the Verres inserted. Drop test was positive and insufflation was begun. When 15 mm of pressure was noted on the monitor, the Veress was removed and #5 port I am m able to use swipe some of the adhesions down with my finger in order to insert a port and insert a camera to visualize the abdomen. The omentum in the left upper quadrant are free but the omentum that is adhered up to the anterior abdominal wall and the liver in the right upper quadrant. Part of this is also some adhesions from her previous tubal. It is difficult to even visualize the liver. The top portion of the liver is also adhered up to the anterior abdominal. I am able to visualize the underlying structures and there has not been any bowel involved. But with this intense inflammatory reaction, we would have to do the case open in order to visualize structures. Patient does not have acute infection. She passed a stone approximately 7 days ago. At this point a with no acute infection and with only an inflammatory reaction, I do not feel it is worth the morbidity to do a open cholecystectomy. We did abort the procedure. The fascia was closed with 2-0 Vicryl. SPonge and needle counts are correct. Pneumoperitoneum is evacuated and the port sites are monitored to make sure there is no bleeding at the time of desufflation. ??Port sites are irrigated and the skin is closed with 4-0 Monocryl in a running subcuticular fashion. Skin glue sterile dressings are applied. The patient tolerated the procedure well without complications, transferred to the recovery room in stable condition. We did discuss the findings with the patient. She is disappointed but is eager to go home. I will see her in the office in 1 week's time. We will discuss bringing her back for lap thomas in 6 weeks time. NNEKA ALSTON, DO
[2023-05-31] MEDS: fentaNYL 100 MCG/2 ML VIAL IVP ×2 (13:58→14:19)
--- NOTE | 2023-05-31 14:02 | W.ANESPOSTOP ---
Postoperative Evaluation Date, Time and Location Date Performed: 05/31/23 Time Performed: 14:02 Patient Location: PACU Vital Signs Most Recent Imported Vital Signs: Most Recent Vital Signs Temp Pulse Resp BP Pulse Ox 36.3 C L 85 16 113/68 94 05/31/23 13:46 05/31/23 13:46 05/31/23 13:46 05/31/23 13:46 05/31/23 13:46 Pain Score Most Recent Pain Score: Most Recent Pain Score Pain Level [Generalized] 0 05/28/23 07:15 Pain Level 6 05/31/23 13:46 Assessment Mental Status: Arousable with meaningful communication Airway and Respiratory Function: Patent airway with normal (patient baseline) respiratory exam Cardiovascular Function: Hemodynamically Stable Hydration Status: Adequately Hydrated Nausea & Vomiting: No Nausea or Vomiting Pain: Pt. Denies Any Pain Peripheral Nerve Block: Patient did not receive a nerve block
--- NOTE | 2023-05-31 14:18 | DSE_ITS ---
Date of service: 05/31/23 Time of Service: 14:18 DS: Diagnosis Discharge Diagnosis (1) Choledocholithiasis: Status: Acute Discharge Plan Disposition Patient Disposition: Home Condition: Stable Condition: Good Discharge Details Reason For Visit: CBD stone Admit Date/Time: 05/26/23 10:28 Admit Provider: Nneka Alston Attending Provider: Nneka Alston [facility] Hospital Course: see addendum Home Meds and New Rx's Prescriptions: No Action One Daily Multi-Vit w-Mineral 4.5 mg iron powder in packet 1 mg PO DAILY (DME) blood-glucose meter [OneTouch Verio Meter] [facility] [place] See Dose Instructions .ROUTE .MEDSUPPLY Qty: 1 0RF Dose Instruction: As directed Rx Instructions: As directed latanoprost 0.005 % drops 1 drp OP QPM (DME) OneTouch Verio test strips Strip See Dose Instructions .ROUTE .MEDSUPPLY Qty: 50 12RF Dose Instruction: As directed Rx Instructions: Dx E11.9 To test BS daily to keep A1C less than 7.0. (DME) lancets [OneTouch Delica Lancets] 33 gauge misc See Dose Instructions .ROUTE .MEDSUPPLY Qty: 100 6RF Dose Instruction: As directed Rx Instructions: Dx E11.9 To test BS daily to keep A1C less than 7.0. fluticasone propionate [Flonase Allergy Relief] 50 mcg/actuation spray,suspension 2 spray GELA DAILY Qty: 16 12RF lisinopril 10 mg tablet 10 mg PO DAILY Qty: 90 3RF timolol 0.25 % drops 1 drp OP BID Zyrtec 10 mg capsule 10 mg PO DAILY PRN (Reason: allergy symptoms) Qty: 90 3RF cyclobenzaprine 10 mg tablet 10 mg PO HS PRN (Reason: muscle spasm) Qty: 90 3RF zolpidem 10 mg tablet 10 mg PO HS PRN (Reason: insomnia) Qty: 90 1RF Discharge Instructions Additional Instructions: Keep an ice bag on the incision. 20 minutes on and 20 minutes off. Ice keeps the swelling down and swelling causes pain. Make sure you wrap the ice pack in a towel and don't apply directly to the skin. -No driving for 24 days or of you are taking narcotic pain medications. -If you have irma or sutures in place, they will be removed at your clinic appointment in 7-10 days. [facility] Surgery Clinic: [phone] -Do Not remove any steri tapes (white tapes) that cover the incision. If you have steri-tapes on your incision, do not use antibacterial ointment. -Follow-up with Dr. Alston June 06 at 11:45 -regular diet. Avoid pork/fried foods/high fat dairy. -no straining to move bowels -pain meds are very constipating: if you do not move your bowels daily take a dose of OTC Miralax -It is ok to shower. No bathe, soaking, swimming or hot tubs -Keep wound clean and dry. Wash incision with soap and water daily. Pat dry, don't rub. - You may find that your appetite is smaller. Eat 3-6 small meals throughout the day. It is important to drink lots of water after surgery, 6-10 glasses a day. -If you were given an incentive spirometry (breathing oliver filter operator?), continue to do this 10x/hour while awake. -We do want you up walking, at least 5-6 times per day. This is very important to prevent pneumonia and blood clots. You can climb stairs, take them slowly. -No lifting over 5 pounds. This is very important to avoid developing a hernia in your incision. -You may find that you are very tired after surgery- this is normal. -please do not smoke for a minimum of 72 hours after surgery. Activity:: see above Equipment/Supplies:: No Equipment Needed Diet:: see above DS: Summary Time Spent with Patient providing and/or coordinating discharge services: Greater than 30 minutes Status at Discharge Functional status at discharge: independent ambulation Overall status at discharge: patient is progressing back to baseline Mental Status: mental status grossly normal Speech and Movement: speech and movement normal Mood: congruent mood Affect: normal affect Exam Psych Mental Status: mental status grossly normal Speech and Movement: speech and movement normal Mood: congruent mood Affect: normal affect DS: Data Vitals/I&O Vitals and I&O: Vital Signs Temperature 36.4 C L 05/31/23 14:15 Temperature Source Tympanic 05/31/23 11:37 Pulse 86 05/31/23 14:15 Pulse Rhythm Regular 05/31/23 08:54 Pulse 80 05/26/23 11:31 Respiratory Rate 17 05/31/23 14:15 Respiratory Effort Normal, Non-Labored 05/31/23 08:54 Respiratory Depth Normal 05/31/23 08:54 Respiratory Pattern Normal 05/31/23 08:54 Blood Pressure 131/57 L 05/31/23 14:15 Blood Pressure Mean 85 05/26/23 11:30 Blood Pressure Position Sitting 05/26/23 08:04 Pulse Oximetry 95 05/31/23 14:15 Respiratory End-tidal CO2 24 05/31/23 14:15 Oxygen Delivery Method Room Air 05/31/23 14:15 Oxygen Flow Rate 1 05/31/23 14:01 Pain Level 2 05/31/23 14:15 Intake & Output 05/30/23 05/31/23 05/31/23 23:59 11:59 23:59 Intake Total 580 / 830 1000 / 1400 400 / 1400 Output Total 100 / 200 100 / 200 Balance 580 / 830 900 / 1200 300 / 1200 Weight 70.307 kg Intake: IV 100 / 110 1000 / 1400 400 / 1400 Oral 480 / 720 Output: Urine 100 / 200 100 / 200 Other: Urine Color Yellow Yellow Pale Urine Appearance Clear Clear Urine Odor None Comment pt goes to the bathroom independently Emesis Description None Voiding Methods Toilet Toilet Data Completed and Pending Labs on day of discharge: Labs from last 24 hours 05/31/23 06:06 Sodium 140 Potassium 4.1 Chloride 104 Carbon Dioxide 25.4 Anion Gap 10.6 BUN 14 Creatinine 0.8 Est GFR (CKD-EPI 2020) 79.22 Glucose 107 H Calcium 9.5 Total Bilirubin 0.7 AST 52 H ALT 154 H Alkaline Phosphatase 264 H Total Protein 7.6 Albumin 3.5 Lipase 42 PFSH All Active Problems (Updated 05/26/23 @ 21:53 by Nneka Alston DO) Elevated bilirubin (Acute) Common bile duct dilatation (Acute) Choledocholithiasis (Acute) Seborrheic keratoses (Acute) Ex-smoker (Acute) Osteopenia (Acute) Type 2 diabetes mellitus without complications (Acute) Controlled with diet and exercise. Last A1c was 5.4 Joint stiffness (Acute) Joint pain (Acute) Osteoarthritis (Chronic) Colorectal polyp detected on colonoscopy (Acute ~02/09/19) DM (diabetes mellitus) (Chronic) Osteopenia (Acute) Hyperlipidemia (Acute) Essential hypertension (Acute) Low back pain (Acute) Medical History (Updated 05/26/23 @ 21:53 by Nneka Alston DO) Allergic rhinitis Colon polyp Fatigue Fibrocystic breast Glaucoma Hypoglycemia Impaired fasting glucose Surgical History (Updated 05/30/23 @ 16:25 by Stephanie Saunders LPN) H/O endoscopy (~05/29/23) 05/29/23 Suspected Bile Duct Stones per report History of colonoscopy (~02/09/19) 2010- normal 2018- SSA and HP 2021 History of tonsillectomy History of tubal ligation Family History Father Diabetes Heart disease Mother No problems noted. Brother No problems noted. Sister No problems noted. Son No problems noted. Social History Smoking/Tobacco Use Status: Former Tobacco Use Tobacco: How many years used: 30 Quit status: quit date established (quit 20 yrs ago) Smoking risk assessment performed?: Yes Alcohol Intake: never Drug use: Never Substance use type: does not use Household members: spouse Housing: house Number of Children: 1 What type of physical activity do you participate in: other Details: Stairs, snow shoeing, house work Duration: > 90 minutes/day Frequency: 5-6 times per week Seatbelt use: always Drive intox or ride w/intox wagon driver salesperson: No Working smoke detector in home: Yes Carbon monox detector in home: Yes Do you feel safe at home: Yes Do you feel safe in your relationship?: Yes Time Spent with Patient Time Spent with Patient: 45-69 minutes Time was spent: preparing to see the patient(eg.review tests), obtaining and/or reviewing separately otained hiistory, ordering medications,tests, procedures, referring, communicating with other health neonatal intensive care unit nurse, indepentently interpreting results, counseling the patient and care coordination
[2023-05-31] MEDS: traMADol 50 MG TAB PO (15:52)
== END 2023-05-31 16:55 | disposition home or self-care (01) | DRG 422 ==
LOC: ER 10:46 → MS 11:49
PROVIDERS: Admitting Provider Surgery; Emergency Provider Registered Nurse Emergency; PCP Nurse Practitioner; Visit Provider Surgery
PROC: 0FT44ZZ Resection of Gallbladder, Percutaneous Endoscopic Approach (ICD-10-PCS; CPT 47562; principal; 2023-05-31 13:30)
DX: K80.70 Calculus of gallbladder and bile duct without cholecystitis without obstruction (principal); Z87.891 Personal history of nicotine dependence; M85.80 Other specified disorders of bone density and structure, unspecified site; Z53.8 Procedure and treatment not carried out for other reasons; E11.9 Type 2 diabetes mellitus without complications; E78.00 Pure hypercholesterolemia, unspecified; I10 Essential (primary) hypertension; H40.9 Unspecified glaucoma; K82.8 Other specified diseases of gallbladder; M54.50 Low back pain, unspecified; E80.6 Other disorders of bilirubin metabolism
CPT/HCPCS: 47562; 36415; 74177; 80053; 83690; 93005; 96374; 96375; 99222; 99231; 99232; 99285; J1650; 71260; 74181; 76705; 82150; 82378; 83735; 84484; 85025; 86301; 93010; J0690; J1100; J1956; J2001; J2405; J2704; J3010; J3490

== ENCOUNTER → 2023-06-06 11:18 | Outpatient (BNVA) | payer MEDICARE, SELFPAY | PROVIDERS: PCP Nurse Practitioner; Referring Provider Nurse Practitioner; Visit Provider Surgery | DX: Z48.815 Encounter for surgical aftercare following surgery on the digestive system (principal) ==

== ENCOUNTER 2023-06-11 03:54 | Outpatient (CLI) | payer MEDICARE, SELFPAY ==
[2023-06-11 12:12] LABS: HCT 39.6 % (36.0-46.0); HGB 12.9 g/dL (11.2-15.7); MCHC 32.6 % (32.0-36.0); MCV 98 fL (80-95); MPV 10.8 fL (8.0-11.0); Platelet Count 449 10^3/uL (130-400); RBC 4.03 10^6/uL (3.93-5.22); RDW 12.7 % (11.7-14.6); RDW-SD 45.3 fL; WBC 5.88 10^3/uL (4.4-10.8)
[2023-06-11 12:32] LABS: ALT 33 U/L (14-59); AST 24 U/L (15-37); Albumin 3.8 g/dL (3.4-5.0); Alkaline Phosphatase 122 U/L (46-116); BUN 13 mg/dL (7-18); Bilirubin, Total 0.7 mg/dL (0.2-1.0); Calcium 9.5 mg/dL (8.5-10.1); Calculated LDL 78 mg/dL (<100); Chloride 105 mmol/L (98-107); Cholesterol 164 mg/dL (<200); Estimated GFR 60.61 (mL/min/1.73m2); Glucose 118 mg/dL (74-106); HDL Cholesterol 63 mg/dL (40-60); Potassium 3.9 mmol/L (3.5-5.1); Sodium 143 mmol/L (136-145); Total Protein 7.6 g/dL (6.4-8.2); Triglyceride 117 mg/dL (<150)
[2023-06-11 12:33] LABS: Hemoglobin A1C 5.8 % (<5.7)
== END 2023-06-11 03:55 | disposition home or self-care (01) ==
LOC: LOS 03:54
PROVIDERS: PCP Nurse Practitioner; Visit Provider Nurse Practitioner
DX: E78.00 Pure hypercholesterolemia, unspecified (principal); E11.9 Type 2 diabetes mellitus without complications; I10 Essential (primary) hypertension
CPT/HCPCS: 36415; 80053; 80061; 85027; 83036

== ENCOUNTER 2023-07-09 09:14 | Inpatient (IN) | payer MEDICARE, SELFPAY ==
[2023-07-09] VITALS (22 sets, daily range): BP systolic 107–158; BP diastolic 45–95; PULSE 73–95; RESP 14–24; TEMP 35.6–36.7; O2SAT 83–100; BMI 28.2
[2023-07-09] MEDS: Normal Saline Flush 10 ML SYR IV ×2 (07:04→11:36)
[2023-07-09] MEDS: Acetaminophen 500 MG TAB 1000 MG PO ×3 (07:04→21:39)
[2023-07-09] MEDS: Gabapentin 300 MG CAP 600 MG PO (07:04)
[2023-07-09] MEDS: Indocyanine green 25 MG VIAL 5 MG IVP (07:06)
[2023-07-09] MEDS: Lactated Ringers 1,000 ML 80 ML IV (07:06)
--- NOTE | 2023-07-09 07:20 | W.ANESPRE ---
General Info Date of Service Date Performed: 07/09/23 Height: 5 ft 1 in Weight: 67.7 kg Body Mass Index (BMI): 28.2 Surgical Procedure: Operation Date: 07/09/23 07:40 Proposed Procedure Side Surgeon p Cholecystectomy Laparoscopic possible Open Nneka Alston, DO Meds Allergies and Home Medications Allergies Allergy/AdvReac Type Severity Reaction Status Date / Time procaine [From Novocain] Allergy Severe violent Verified 07/05/23 10:00 headache prednisone AdvReac Mild doesn't Verified 07/05/23 10:00 seem to work Home Medication Medication Instructions Recorded blood-glucose meter (OneTouch #1 ea 12/31/18 Verio Meter) latanoprost 0.005 % eye drops 1 drp ophthalmic (eye) QPM 06/29/19 timolol 0.25 % eye drops 1 drp ophthalmic (eye) BID 02/29/20 cetirizine 10 mg capsule (Zyrtec) 10 mg PO DAILY PRN allergy 12/18/21 symptoms #90 caps blood sugar diagnostic (OneTouch #50 ea 07/02/22 Verio test strips) lancets 33 gauge (OneTouch Delica #100 ea 07/02/22 Lancets) cyclobenzaprine 10 mg tablet 10 mg PO HS PRN muscle spasm #90 10/10/22 tabs fluticasone propionate 50 2 spray intranasal DAILY #16 grams 12/31/22 mcg/actuation nasal spray,suspension (Flonase Allergy Relief) lisinopril 10 mg tablet 10 mg PO DAILY #90 tabs 12/31/22 zolpidem 10 mg tablet 10 mg PO HS PRN insomnia #90 tabs 04/08/23 cholecalciferol (vitamin D3) 25 25 mcg PO DAILY 06/06/23 mcg (1,000 unit) capsule rppxkjlqjrib-urlzpras-lqkbnk tablet 1 tab PO DAILY 06/06/23 Current Visit Medications: Current Medications Generic Name Dose Route Start Last Admin Trade Name Freq PRN Reason Stop Dose Admin Acetaminophen 1,000 mg 07/09/23 06:00 07/09/23 07:04 Acetaminophen 500 Mg Tab PO 07/09/23 23:59 1,000 mg PREOP DEDE Administration Gabapentin 600 mg 07/09/23 06:00 07/09/23 07:04 Gabapentin 300 Mg Cap PO 09/05/23 23:59 600 mg PREOP DEDE Administration Ringer's Solution 1,000 mls @ 80 mls/hr 07/09/23 06:00 07/09/23 07:06 IV 07/09/23 23:59 80 mls/hr INFUSION DEDE Administration Cefazolin Sodium/Dextrose 2 gm in 50 mls @ 100 mls/hr 07/09/23 06:00 Ancef Duplex IVPB 07/09/23 23:59 PREOP DEDE Ondansetron HCl 4 mg/ Sodium 52 mls @ 200 mls/hr 07/08/23 20:06 Chloride IVPB 08/07/23 20:05 Q6H PRN PRN IV Miscellaneous Supplies 1 each 07/09/23 06:00 Iv Access IV 07/09/23 23:59 DIRECTED DEDE Indocyanine Green 5 mg 07/09/23 06:00 07/09/23 07:06 Indocyanine Green 25 Mg Vial IVP 08/08/23 05:59 5 mg DIRECTED DEDE Administration Morphine Sulfate 2 mg 07/09/23 08:06 Morphine 4 Mg/Ml Syr IVP 08/08/23 08:05 Q1H PRN PRN Oxycodone HCl 5 mg 07/09/23 08:06 Oxycodone 5 Mg Tab PO 08/08/23 08:05 Q3H PRN PRN Pain Sodium Chloride 0 ml 07/09/23 06:00 07/09/23 07:04 Normal Saline Flush 10 Ml Syr IV 07/09/23 23:59 20 ml PRN PRN Administration Sodium Chloride 0 ml 07/09/23 06:00 Normal Saline 10 Ml Vial IJ 07/09/23 23:59 DIRECTED PRN Sterile Water 0 ml 07/09/23 06:00 Water,Injection,Sterile 10 Ml Vial IJ 07/09/23 23:59 DIRECTED PRN PFSH Active Problems Active Problems: Problem Status Onset Code Choledocholithiasis K80.50 Seborrheic keratoses L82.1 Ex-smoker Z87.891 Osteopenia M85.80 Joint stiffness M25.60 Joint pain M25.50 Osteoarthritis M19.90 Colorectal polyp detected on colonoscopy ~02/09/19 K63.5 DM (diabetes mellitus) E11.9 Osteopenia M85.80 Hyperlipidemia E78.5 Essential hypertension I10 Low back pain M54.5 Medical History Medical History Allergic rhinitis Colon polyp Fatigue Fibrocystic breast Glaucoma Hypoglycemia Impaired fasting glucose Medical History Comments:: Patient reports post nasal drip occ. and signifigant allergies particularly at this time of year. Surgical History Surgical History H/O endoscopy (~05/29/23) 05/29/23 Suspected Bile Duct Stones per report History of colonoscopy (~02/09/19) 2010- normal 2019- SSA and HP 2021 History of tonsillectomy History of tubal ligation Tobacco Smoking/Tobacco Use Status: Former Tobacco Use Alcohol Alcohol Intake: never Substance Use Substance use: Never Substance use type: does not use Vital Signs and Lab Results Vital Signs Most Recent Vital Signs in EMR: Most Recent Vital Signs Temp Pulse Resp BP Pulse Ox 36.7 C 86 16 158/79 H 97 07/09/23 06:33 07/09/23 06:33 07/09/23 06:33 07/09/23 06:33 07/09/23 06:33 Lab Results Blood Type / Crossmatch: No Data to Display Complete Blood Count: White Blood Count 5.88 10^3/uL (4.4-10.8) 06/11/23 07:57 Red Blood Count 4.03 10^6/uL (3.93-5.22) 06/11/23 07:57 Hemoglobin 12.9 g/dL (11.2-15.7) 06/11/23 07:57 Hematocrit 39.6 % (36.0-46.0) 06/11/23 07:57 Platelet Count 449 10^3/uL (130-400) H 06/11/23 07:57 Complete Metabolic Panel: Sodium 143 mmol/L (136-145) 06/11/23 07:57 Potassium 3.9 mmol/L (3.5-5.1) 06/11/23 07:57 Chloride 105 mmol/L (98-107) 06/11/23 07:57 Carbon Dioxide 29.0 mmol/L (21.0-32.0) 06/11/23 07:57 BUN 13 mg/dL (7-18) 06/11/23 07:57 Creatinine 1.0 mg/dL (0.55-1.02) 06/11/23 07:57 Est GFR (CKD-EPI 2020) 60.61 (mL/min/1.73m2) 06/11/23 07:57 Calcium 9.5 mg/dL (8.5-10.1) 06/11/23 07:57 Albumin 3.8 g/dL (3.4-5.0) 06/11/23 07:57 Glucose 118 mg/dL (74-106) H 06/11/23 07:57 Hemoglobin A1c 5.8 % (<5.7) H 06/11/23 07:57 Liver Function Panel: Alanine Aminotransferase (ALT/SGPT) 33 U/L (14-59) 06/11/23 07:57 Aspartate Amino Transf (AST/SGOT) 24 U/L (15-37) 06/11/23 07:57 Coagulation Panel: No Data to Display Cardiac Panel: No Data to Display Arterial Blood Gas: No Data to Display Venous Blood Gas: No Data to Display Pancreas Panel: No Data to Display Thyroid Panel: No Data to Display Infectious Disease: No Data to Display Blood Cultures: No Data to Display Toxicology Panel: No Data to Display Anesthesia Assessment and Plan Anesthesia History Personal History: No History of Anesthesia Complications Family History: No Family History of Anesthesia Complications Exercise Tolerance Exercise Tolerance: Metabolic Equivalents>4 Pertinent Negatives Pertinent Negatives: No Major Cardiovascular Symptoms or Complaints, No Major Pulmonary Symptoms or Complaints and No History of CVA/TIA Cardiac & Pulmonary Exam Cardiac Exam: Normal S1/S2 Heart Sounds Pulmonary Exam: Clear Bilateral Breath Sounds Implantable Cardiac Device Does patient have a Pacemaker or an ICD?: No Airway Exam Known Difficult Airway: No Mallampati Class: 2 Mouth Opening: Narrow (< 3cm) Thyromental Distance: Less than 3 cm Neck Range of Motion: Full ROM Neck Circumference: Normal Teeth Condition: Normal Dentition ASA Classification ASA Score: ASA 2 Emergency Case?: No NPO Status NPO Status: NPO Clears >2 hours, Solids >8 hours Anesthesia Plan Resuscitation Status: Full Code Anesthesia Technique: General Anesthesia Airway Planned: Endotracheal Tube Monitors Used: Standard Monitors Preoperative Comments:: Anterior larynx on last intubation, plan Henderson scope
[2023-07-09] MEDS: PROPOFOL 500 MG/50 ML BTL 150 MG (07:40)
[2023-07-09] MEDS: Ondansetron 4 MG/2 ML VIAL (07:40)
[2023-07-09] MEDS: PROPOFOL 1,000 MG/100 ML BTL 150 MG (07:40)
[2023-07-09] MEDS: ceFAZolin 2 GM/50 ML BAG IVPB (07:40)
[2023-07-09] MEDS: Lidocaine 2% Pres-Free 5 ML VIAL (07:40)
[2023-07-09] MEDS: Dexamethasone 4 MG/ML VIAL (07:45)
[2023-07-09] MEDS: Bupivacaine 0.25% Pres-Free 30 ML VIAL (07:50)
[2023-07-09] MEDS: Ketorolac 30 MG/ML VIAL (09:05)
[2023-07-09] MEDS: PIPERACILLIN/TAZO 3.375 GM in Normal Saline 50 ML IVPB ×3 (09:05→20:50)
--- NOTE | 2023-07-09 09:05 | GB_PTH ---
PATIENT: Vandana Rothman LOC: U#:[id number] AGE/SX: 68/F [facility]: Nneka Alston : 1955 BED: A DIS: 07/11/2023 SPEC #: [id number] RECD: 07/09/23 12:49 STATUS: ELADIO REQ #: [id number] DANIEL: 07/09/23 09:[address]: Nneka Alston DEPT: Surgical Specimen RECD BY: Stephanie Pozo ENTERED: 07/09/23 12:50 SP TYPE: GB OTHR DR: Kelly Arteaga APRN Tissues: 1 - GALLBLADDER Procedures: GROSS AND MICRO LEVEL 3 Comments: [id number]
--- NOTE | 2023-07-09 09:19 | W.PM.OP ---
Date of service: 07/09/23 Time of Service: 09:19 Operative Note Operative Note DATE OF PROCEDURE: 07/09/23 PRE-OP DIAGNOSIS: chronic thomas w/ stones / hx of CBD stone POST-OP DIAGNOSIS: same PROCEDURE: attempted laprascopic/open thomas SURGEON: Nneka Alston ASSISTANT STATISTICIAN: Renata May ANESTHESIA TYPE: Local By Surgeon and General LMA/ETT Refer to Anesthesia Record ESTIMATED BLOOD LOSS: 25 PATHOLOGY: other COMPLICATIONS: None Patient was transported to: PACU Patient's condition: stable Procedure Description: The pt is here today for acute on chronic cholecystitis, cholelithiasis. The pt has failed outpt conservative medical measures and is here today for laparoscopic cholecystectomy. Informed consent was obtained, explaining risks and benefits of the procedure including but not limited to bleeding, infection, pneumonia, blood clots, possible damage to bowel, bladder, blood vessels, bile ducts, possible open procedure, complications of general anesthesia and other unforetold complications The patient agrees and is brought to the operative room suite and placed in supine position. Anesthesia was administered per the Department of Anesthesia. The patient did receive IV antibiotics. NG tube and Palmer catheter are placed. The patient was prepped and draped in the usual sterile fashion using DuraPrep scrub solution. Pause for the cause was done. 20 mL of 1% buffered lidocaine was used for local anesthetization. Incision is then made in the umbilicus. She had a cutdown is done in the standard fashion. 0 Vicryl sutures are placed for stay sutures. Finger is placed into the abdomen and swept. She still has dense adhesions. These are taken down with blunt dissection. Sheehan trocar is placed insufflation is begun. Upon entering into the abdomen. She still has contents down some inflammatory reaction. And I am unable to get into the abdomen even to place an initial trocar. At that point the decision was made to go with open cholecystectomy. All laparoscopic instruments were passed off the field. ?A paramedian incision was made approximately 5 cm in length with a #15 blade scalpel. Next, hemostasis was obtained using electro Bovie cautery. Dissection was carried down transrectus in the midline to the posterior rectus fascia, and to extend the incision and the abdomen was entered. The gallbladder was immediately visualized and brought up into view, grasped with two ring clamps elevating the biliary tree into view. The hepatoduodenal ligament is entered.? The cystic artery and cystic duct, which were both easily identified. The gallbladder was taken off of the pliver to create the critical view of safety.? Both artery and duct are identified. ?The cystic artery was clipped, two distal and one proximal to the gallbladder cutting between with Metzenbaum scissors. The cystic duct was identified. Clips are placed across the duct.? The duct is ligated in between clips with a Metzenbaum scissors. The gallbladder was then removed from the liver bed using electro Bovie cautery. A plane was created. The hemostasis was obtained using the electro Bovie cautery. The gallbladder was then removed as specimen, sent to pathology.? The remainder of the fossa shows no active bleeding or bile leakage. The fossa was the irrigated w/ saline. ?Sponge and needle counts are current.? Interceed is placed under the incision.? ?The peritoneum as well as posterior rectus fascia was approximated with a running #0 Vicryl suture and then the anterior rectus fascia was closed in interrupted [id number] #0 Vicryl sutures. Skin irma were used on the skin and sterile dressings were applied and the patient was transferred to recovery in stable condition.
[2023-07-09] MEDS: Normal Saline 10 ML VIAL IJ (09:34)
[2023-07-09] MEDS: HYDROmorphone 2 MG/ML SYR IVP ×3 (09:34→10:15)
--- NOTE | 2023-07-09 10:10 | W.ANESPOSTOP ---
Postoperative Evaluation Date, Time and Location Date Performed: 07/09/23 Time Performed: 10:04 Patient Location: PACU Vital Signs Most Recent Imported Vital Signs: Most Recent Vital Signs Temp Pulse Resp BP Pulse Ox 36.5 C 77 17 128/53 L 98 07/09/23 09:55 07/09/23 09:55 07/09/23 09:55 07/09/23 09:55 07/09/23 09:55 Pain Score Most Recent Pain Score: Most Recent Pain Score Pain Level 6 07/09/23 09:55 Assessment Mental Status: Awake (Alert & Oriented to Patient Baseline) Airway and Respiratory Function: Patent airway with normal (patient baseline) respiratory exam Cardiovascular Function: Hemodynamically Stable Hydration Status: Adequately Hydrated Nausea & Vomiting: No Nausea or Vomiting Pain: Pain is Moderate or Severe Postoperative Pain Management: Ongoing pain, patient will be managed as an inpatient Peripheral Nerve Block: Patient did not receive a nerve block
[2023-07-09] MEDS: oxyCODONE 5 MG TAB PO ×2 (11:36→19:16)
[2023-07-09] MEDS: Normal Saline 1,000 ML 75 ML IV (11:37)
--- NOTE | 2023-07-09 13:44 | W.PM.PROGNOT ---
Date of Service Date of service: 07/09/23 Time of Service: 13:45 Assessment and Plan Assessment and plan (1) Choledocholithiasis: Status: Acute Assessment and plan: The patient is doing well post-op. Their pain is well controlled. They are having no nausea or vomiting. The pt is not having any chest pain or SOB, productive cough; no calf pain or swelling. The pt is making good urine. The pt pain is adequately controlled. The case was discussed with nursing and patient?s progress reviewed. All of the pt's home medications were addressed and adjusted accordingly for their oral intact status. HEENT: no jaundice. no eye pain/drainage/redness/swelling. Mild sore throat Cardio- NSR no chest pain, BP stable. Pulm: no sob or productive cough. no hemoptysis Incision- clean/dry. Dressing intact no excessive bleeding or drainage I discussed with the patient and/or there family about the findings in surgery and the pt's progress. We reviewed expectations for progress in the hospital; what the pt could expect for recovery time and length of stay. We discussed the importance of walking and pulmonary toilet to avoid blood clots and pneumonia. Continue current plans for pulmonary toilet, GI and DVT prophylaxis. We shall continue the current plan for pain management as it is at an appropriate level, and working well for the pt. Appropriate measures will be taken for constipation prevention, and this was also reviewed with the pt. The wound care plan was reviewed with nursing as well. see orders d/c bowers DM clears walk zosysn- low grade chronic thomas w/ stones lovenox -DVT pulm toilet GI- eating pain control: tylenol/toradol/flexeril/oxycodone/IV MS for breakdthrough prob d/c (2) S/P cholecystectomy: (3) Essential hypertension: Status: Acute (4) Hyperlipidemia: Status: Acute Qualifiers: Hyperlipidemia type: pure hypercholesterolemia Qualified Code(s): E78.00 - Pure hypercholesterolemia, unspecified; E78.0 - Pure hypercholesterolemia (5) Osteopenia: Status: Acute (6) DM (diabetes mellitus): Status: Chronic Qualifiers: Diabetes mellitus complication status: without complication Diabetes mellitus senior living insulin use: without senior living use Diabetes mellitus type: type 2 Qualified Code(s): E11.9 - Type 2 diabetes mellitus without complications Objective Last Vital Signs Temp 36.1 C L 07/09/23 13:18 Pulse 95 H 07/09/23 13:18 Resp 17 07/09/23 13:18 BP 126/76 07/09/23 13:18 Pulse Ox 96 07/09/23 13:18 Time Spent with Patient Time Spent with Patient: 25-34 minutes Time was spent: preparing to see the patient(eg.review tests), obtaining and/or reviewing separately otained hiistory, ordering medications,tests, procedures, referring, communicating with other health pharmacist critical care, indepentently interpreting results, counseling the patient and care coordination
[2023-07-09] MEDS: Ketorolac 15 MG/ML VIAL IVP ×2 (14:12→20:52)
[2023-07-09] MEDS: Normal Saline Flush 10 ML SYR IVP (14:13)
--- NOTE | 2023-07-09 15:56 | DSE_ITS ---
DS: Diagnosis Discharge Diagnosis (1) Choledocholithiasis: Status: Acute (2) S/P cholecystectomy: (3) Essential hypertension: Status: Acute (4) Hyperlipidemia: Status: Acute (5) Osteopenia: Status: Acute (6) DM (diabetes mellitus): Status: Chronic Discharge Plan Disposition Patient Disposition: Home Discharge Details Reason For Visit: s/p Open Bambi Admit Date/Time: 07/09/23 09:14 Admit Provider: Nneka Alston Attending Provider: Nneka Alston Primary Care Provider: Kelly Arteaga Winkelman Meds and New Rx's Prescriptions: New oxycodone 5 mg tablet 5 mg PO Q4H PRNQty: 14 0RF Continued (DME) blood-glucose meter [OneTouch Verio Meter] misc See Dose Instructions .ROUTE .MEDSUPPLY Qty: 1 0RF Dose Instruction: As directed Rx Instructions: As directed latanoprost 0.005 % drops 1 drp OP QPM (DME) OneTouch Verio test strips Strip See Dose Instructions .ROUTE .MEDSUPPLY Qty: 50 12RF Dose Instruction: As directed Rx Instructions: Dx E11.9 To test BS daily to keep A1C less than 7.0. (DME) lancets [OneTouch Delica Lancets] 33 gauge misc See Dose Instructions .ROUTE .MEDSUPPLY Qty: 100 6RF Dose Instruction: As directed Rx Instructions: Dx E11.9 To test BS daily to keep A1C less than 7.0. fluticasone propionate [Flonase Allergy Relief] 50 mcg/actuation spra y,suspension 2 spray GELA DAILY Qty: 16 12RF lisinopril 10 mg tablet 10 mg PO DAILY Qty: 90 3RF [id number] Tablet 1 tab PO DAILY cholecalciferol (vitamin D3) 25 mcg (1,000 unit) capsule 25 mcg PO DAILY timolol 0.25 % drops 1 drp OP BID Zyrtec 10 mg capsule 10 mg PO DAILY PRN (Reason: allergy symptoms) Qty: 90 3RF zolpidem 10 mg tablet 10 mg PO HS PRN (Reason: insomnia) Qty: 90 1RF cyclobenzaprine 10 mg tablet See Rx Instructions .ROUTE .COMPLEX Qty: 90 3RF Dose Instruction: TAKE 1 TABLET BY MOUTH AT BEDTIME NEEDED FOR MUSCLE SPASM Rx Instructions: TAKE 1 TABLET BY MOUTH AT BEDTIME NEEDED FOR MUSCLE SPASM Discharge Instructions Additional Instructions: Care after Gallbladder Surgery -Pain control: ?For the first 72 hours after surgery, take your pain meds continuously, and not just when you have pain.?? Alternate Tylenol 1000mg by mouth every 8 hours, and Ibuprofen 600mg every 6 hours.? Make sure you take ibuprofen with food and not on an empty stomach.? ??Use the tramadol for breakthrough pain- pain that is greater than a 7. ?- Use ICE! Ice really helps to keep the swelling down, and swelling causes pain. ??Twenty minutes on, and then off, continuously for the first 72hours.? After the first 72hrs, you can just use the Tylenol, ibuprofen, and ice, when you have pain.?? If you are taking narcotic pain medication, follow the instructions on the label and do not drive. Pain medications can make you very constipated. Make sure you are moving your bowels daily. If not, take Miralax. -Narcotic pain meds can makes you very constipated.? Take a dose of Miralax the morning after surgery and as needed while you are still taking them. ? Use an ice bag for the first 72 hours. This helps to decrease swelling, which causes pain. It is normal to be more sore/painful and swollen towards the end of the day and first thing in the morning. ? Use Miralax or prune juice to prevent constipation (this is a particular side effect of pain medication and anesthesia). Do not allow yourself to become constipated. ? Avoid fatty or greasy foods; introduce these slowly, with care, after about 1 month. High-fat foods include: ? Foods that are fried, like English fries and potato chips ? High-fat meats, such as cummings, bologna, sausage, ground beef, and ribs, pork products ? High-fat dairy products, such as cheese, ice cream, cream, whole milk, and sour cream ? Pizza ? Foods made with lard or butter ? Creamy soups or sauces ? Meat gravies ? Chocolate ? Oils, such as palm and coconut oil ? Skin of chicken or turkey ? Nuts and nut butters ? Avocadoes ? Start out eating very small, bland amounts of food. Do not take pain pills on an empty stomach. - You will notice purple discoloration around the incisions.? This is the ?skin glue?.? This will wear off on its own.? It is OK to shower after 24hrs.? You do not need to cover the incisions. -You should walk frequently, gradually, increasing the distance. You may climb stairs, just go slowly. ? Do not go swimming or sit in a hot tub for two weeks. ? There are no stitches to remove. ? Do not drive your car x72hrs and then only if you have no pain and can move freely. Do not drive if you are taking pain narcotic pain medications. ? You may resume sexual activity whenever pain and soreness subside, usually in 2 weeks. ? Do no lift anything over 5 lbs. for two weeks. ? You may return to work in one week, or when you feel able, provided you do not have to do any heavy lifting or prolonged standing. ? You should return to Dr. Alston?s office for a post-op appointment about two weeks after surgery. A follow-up should have been scheduled for you already.? If there is not, please call the Surgical Clinic at: [phone] to schedule an appointment. My Medications for pain and nausea are: Tylenol/ibuprofen ?and ultram- for severe pain ? When to Call the Office: ? If the incision becomes red or swollen, or there is more than a little drainage from it. ? If you develop a temperature higher than 100.5 F. ? If your eyes turn yellow ? Vomiting and can?t keep fluids down Activity:: See above Equipment/Supplies:: No Equipment Needed Diet:: See above Discharge Orders Discharge Orders: Discharge Order (Routine); Ordered 07/09/23 Ordered By: Nneka Alston DS: Data Vitals/I&O Vitals and I&O: Vital Signs Temperature 35.6 C L 07/09/23 14:08 Temperature Source Tympanic 07/09/23 14:08 Pulse 91 H 07/09/23 14:08 Pulse Rhythm Regular 07/09/23 06:33 Respiratory Rate 16 07/09/23 14:08 Respiratory Depth Normal 07/09/23 06:33 Blood Pressure 109/68 07/09/23 14:08 Pulse Oximetry 96 07/09/23 14:48 Oxygen Delivery Method Nasal Cannula 07/09/23 14:48 Oxygen Flow Rate 1 07/09/23 14:48 Pain Level 1 07/09/23 14:12 Comment Pt. now satting 96 percent on 1L of oxygen via nasal cannula at this time. Pt. to be left on 1L at this time; pt.'s oxygen saturation dips when pt. is sleeping. 07/09/23 14:48 Intake & Output 07/08/23 07/09/23 07/09/23 23:59 11:59 23:59 Intake Total 1771.333 / 2015.333 245 / 333 Output Total 150 / 150 Balance 1771.333 / 1866.333 95 / 186.333 Weight 67.7 kg Intake: IV 981.333 / 1226.333 245 / 122.333 Oral 790 / 790 Output: Urine 150 / 150 Other: Urine Color Yellow Straw Urine Appearance Clear Clear Sediment Comment Per verbal MD order, Palmer catheter to be removed. Emesis Description None PFSH All Active Problems Choledocholithiasis (Acute) Seborrheic keratoses (Acute) Ex-smoker (Acute) Osteopenia (Acute) Joint stiffness (Acute) Joint pain (Acute) Osteoarthritis (Chronic) Colorectal polyp detected on colonoscopy (Acute ~02/09/19) DM (diabetes mellitus) (Chronic) Osteopenia (Acute) Hyperlipidemia (Acute) Essential hypertension (Acute) Low back pain (Acute) Medical History Allergic rhinitis Colon polyp Fatigue Fibrocystic breast Glaucoma Hypoglycemia Impaired fasting glucose Surgical History (Updated 07/09/23 @ 13:46 by Nneka Alston DO) H/O endoscopy (~05/29/23) 05/29/23 Suspected Bile Duct Stones per report History of colonoscopy (~02/09/19) 2010- normal 2018- SSA and HP 2021 History of tonsillectomy History of tubal ligation S/P cholecystectomy Family History Father Diabetes Heart disease Mother No problems noted. Brother No problems noted. Sister No problems noted. Son No problems noted. Social History Smoking/Tobacco Use Status: Former Tobacco Use Quit Date: 11/04/02 Tobacco: How many years used: 30 Quit status: quit date established (quit 20 yrs ago) Smoking risk assessment performed?: Yes Alcohol Intake: never Drug use: Never Substance use type: does not use Household members: spouse Housing: house Number of Children: 1 What type of physical activity do you participate in: other Details: Stairs, snow shoeing, house work Duration: > 90 minutes/day Frequency: 5-6 times per week Seatbelt use: always Drive intox or ride w/intox driver license agent: No Working smoke detector in home: Yes Carbon monox detector in home: Yes Do you feel safe at home: Yes Additional Social history: Unable to assess privately
[2023-07-09] MEDS: Zolpidem 5 MG TAB PO (20:54)
[2023-07-09] MEDS: Latanoprost 0.005% 2.5 ML BTL OU (20:56)
[2023-07-10] VITALS (7 sets, daily range): BP systolic 90–146; BP diastolic 60–82; PULSE 64–89; RESP 16–18; TEMP 35.9–37.1; O2SAT 92–96
[2023-07-10] MEDS: Normal Saline 1,000 ML 75 ML IV (00:51)
[2023-07-10] MEDS: Ketorolac 15 MG/ML VIAL IVP ×4 (02:05→19:53)
[2023-07-10] MEDS: PIPERACILLIN/TAZO 3.375 GM in Normal Saline 50 ML IVPB ×4 (02:05→19:53)
[2023-07-10] MEDS: oxyCODONE 5 MG TAB PO ×3 (02:21→15:55)
[2023-07-10] MEDS: Cyclobenzaprine 10 MG TAB PO (04:22)
[2023-07-10] MEDS: Acetaminophen 500 MG TAB 1000 MG PO ×3 (06:19→19:53)
[2023-07-10 07:19] LABS: Abs Immature Grans 0.04 10^3/uL (0.0-0.06); Absolute Basophil Count 0.04 10^3/uL (0.0-0.2); Absolute Eosinophil Count 0.02 10^3/uL (0.0-0.7); Basophils % 0.3; Eosinophils % 0.2; HCT 34.5 % (36.0-46.0); HGB 11.4 g/dL (11.2-15.7); Immature Grans % 0.3; Lymphocytes % 13.8; MCH 32.4 pg (27.0-33.0); MCV 98 fL (80-95); MPV 10.4 fL (8.0-11.0); Neutrophils % 75.4; Platelet Count 235 10^3/uL (130-400); RBC 3.52 10^6/uL (3.93-5.22); RDW 12.4 % (11.7-14.6); RDW-SD 44.7 fL; WBC 11.99 10^3/uL (4.4-10.8)
[2023-07-10 07:24] LABS: Absolute Lymphocyte Count 1.65 10^3/uL (1.2-3.4); Absolute Neutrophil Count 9.04 10^3/uL (1.2-6.7)
[2023-07-10] MEDS: Lisinopril 10 MG TAB PO (09:09)
[2023-07-10] MEDS: Enoxaparin 40 MG/0.4 ML SYR SC (09:09)
[2023-07-10] MEDS: Polyethylene Glycol 3350 17 GM PACKET PO (09:09)
--- NOTE | 2023-07-10 10:23 | PDOC.CMIN ---
Date of service: 07/10/23 Time of Service: 10:24 Care Management Initial Assmt Initial Assessment REASON FOR HOSPITALIZATION:: s/p open cholecystectomy PREVIOUS FUNCTIONAL STATUS/SOCIAL/FAMILY SUPPORTS:: Vandana resides in [place] with her , Tam. She reports the couple returned to [place] five years ago to retire, after spending more than 20 years in [place]. 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 She shares that her and Tam are self sufficient and only make a few trips a month to town for supplies. CURRENT FUNCTIONAL STATUS:: Vandana was sitting up in her chair when CM met with her. She stated that she is feeling well today, although a little sore, which she expected. She reported that she is happy to have surgery behind her, and she can now move forward with healing. She stated that she has not yet received a bill from her previous hospitalization; CM provided a patient assistance packet, at her request. Vandana reported that she is independent at baseline; no anticipated services upon discharge. CM will continue to follow. ADVANCE DIRECTIVES:: On file; Tam Rothman as agent, Jessa Galo as alternate Has patient been provided with info about the portal/API?: Yes Did the patient sign up for the portal?: Yes CODE STATUS:: DNR/DNI INSURANCE COVERAGE / FINANCIAL ISSUES:: [employer] advantage CURRENT HOME/COMMUNITY SERVICES/EQUIPMENT:: No current services. PRIMARY CARE PHYSICIAN:: Kelly Arteaga POTENTIAL DISCHARGE NEEDS:: Follow up appointments PATIENT/FAMILY EDUCATION NEEDS:: Review discharge instructions and limitations, discussion of self care needs including ask me three. ANTICIPATED BARRIERS TO DISCHARGE:: None identified. TRANSPORTATION:: Via private vehicle by family PLAN:: Anticipate Vandana will return home once she is medically cleared. Her will drive her home via private vehicle. She will follow up with surgical services and her discharge plan of care. CM will continue to follow. PFSH All Active Problems (Updated 07/10/23 @ 00:06 by DEL AGGARWAL) Seborrheic keratoses (Acute) Ex-smoker (Acute) Osteopenia (Acute) Joint stiffness (Acute) Joint pain (Acute) Osteoarthritis (Chronic) Colorectal polyp detected on colonoscopy (Acute ~02/09/19) DM (diabetes mellitus) (Chronic) Osteopenia (Acute) Hyperlipidemia (Acute) Essential hypertension (Acute) Low back pain (Acute) Medical History (Updated 07/10/23 @ 00:06 by DEL AGGARWAL) Allergic rhinitis Colon polyp Fatigue Fibrocystic breast Glaucoma Hypoglycemia Impaired fasting glucose Surgical History (Updated 07/09/23 @ 13:46 by Nneka Alston DO) H/O endoscopy (~05/29/23) 05/29/23 Suspected Bile Duct Stones per report History of colonoscopy (~02/09/19) 2010- normal 2018- SSA and HP 2021 History of tonsillectomy History of tubal ligation S/P cholecystectomy Family History Father Diabetes Heart disease Mother No problems noted. Brother No problems noted. Sister No problems noted. Son No problems noted. 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
[2023-07-10] MEDS: Normal Saline 500 ML 30 ML IV (14:44)
--- NOTE | 2023-07-10 18:00 | W.PM.PROGNOT ---
Date of Service Date of service: 07/10/23 Time of Service: 18:00 Assessment and Plan Assessment and plan (1) S/P cholecystectomy: Assessment and plan: Generally, I think else doing very well after an open cholecystectomy. She still requiring a modest amount of intravenous analgesia today, but we can see how that progresses over the next 24 hours. Assuming she tolerates dinner and breakfast, and remains on this trajectory, then I think she will likely be discharged tomorrow. Subjective Subjective Interval history since last seen: Feels doing great. She has been up and out of bed and moving around. Generally her pain is pretty well controlled. She is having some cramping colicky type discomfort mostly in the mid epigastrium and left upper quadrant. She denies any nausea vomiting or flatus today. Exam GI Inspection: normal to inspection Palpation: soft and tender (Appropriate incisional tenderness) Percussion: tympanic to percussion Auscultation: hypoactive bowel sounds Objective Last Vital Signs Temp 96.6 F L 07/10/23 15:49 Pulse 80 07/10/23 15:49 Resp 18 07/10/23 15:49 BP 115/74 07/10/23 15:49 Pulse Ox 94 07/10/23 15:49 Laboratory Results - last 24 hr 07/10/23 06:15 WBC 11.99 H RBC 3.52 L Hgb 11.4 Hct 34.5 L MCV 98 H MCH 32.4 MCHC 33.0 RDW 12.4 Plt Count 235 MPV 10.4 Immature Gran % 0.3 Neutrophils % 75.4 Lymphocytes % 13.8 Monocytes % 10.0 Eosinophils % 0.2 Basophils % 0.3 Nucleated RBC % 0.0 Absolute Neutrophils 9.04 H Absolute Lymphocytes 1.65 Absolute Monocytes 1.20 H Absolute Eosinophils 0.02 Absolute Basophils 0.04 Time Spent with Patient Time Spent with Patient: <25 minutes Time was spent: preparing to see the patient(eg.review tests), counseling the patient and care coordination
[2023-07-10] MEDS: Zolpidem 5 MG TAB PO (19:53)
[2023-07-10] MEDS: Latanoprost 0.005% 2.5 ML BTL OU (19:54)
[2023-07-11] MEDS: Ketorolac 15 MG/ML VIAL IVP ×2 (01:36→08:39)
[2023-07-11] MEDS: PIPERACILLIN/TAZO 3.375 GM in Normal Saline 50 ML IVPB ×2 (01:38→08:42)
[2023-07-11 04:17] VITALS: BP 104/68; PULSE 78; RESP 18; TEMP 36.3; O2SAT 92
[2023-07-11] MEDS: Acetaminophen 500 MG TAB 1000 MG PO (05:15)
--- NOTE | 2023-07-11 05:25 | DSE_ITS ---
Date of service: 07/11/23 Time of Service: 05:34 DS: Diagnosis Discharge Diagnosis (1) S/P cholecystectomy: Asessment and Plan: Follow-up with Dr. Alston July 15 at 2:30 PM Discharge Plan Disposition Patient Disposition: Home Condition: Good Discharge Details Reason For Visit: s/p Open Bambi Admit Date/Time: 07/09/23 09:14 Admit Provider: Nneka Alston Attending Provider: Nneka Alston Primary Care Provider: Kelly Arteaga [facility] Hospital Course: Vandana is a 68-year-old woman with complicated cholelithiasis. She presents for attempted laparoscopic cholecystectomy. Operative course was complicated by dense adhesions requiring conversion to an open operation. She tolerated this well. Vital signs were reassuring afterwards, the patient's diet was advanced without any complications. She was discharged home with follow-up instructions. Home Meds and New Rx's Prescriptions: New oxycodone 5 mg tablet 5 mg PO Q4H PRNQty: 14 0RF Continued (DME) blood-glucose meter [OneTouch Verio Meter] [facility] – [place] See Dose Instructions .ROUTE .MEDSUPPLY Qty: 1 0RF Dose Instruction: As directed Rx Instructions: As directed latanoprost 0.005 % drops 1 drp OP QPM (DME) OneTouch Verio test strips Strip See Dose Instructions .ROUTE .MEDSUPPLY Qty: 50 12RF Dose Instruction: As directed Rx Instructions: Dx E11.9 To test BS daily to keep A1C less than 7.0. (DME) lancets [OneTouch Delica Lancets] 33 gauge misc See Dose Instructions .ROUTE .MEDSUPPLY Qty: 100 6RF Dose Instruction: As directed Rx Instructions: Dx E11.9 To test BS daily to keep A1C less than 7.0. fluticasone propionate [Flonase Allergy Relief] 50 mcg/actuation spray,suspension 2 spray GELA DAILY Qty: 16 12RF lisinopril 10 mg tablet 10 mg PO DAILY Qty: 90 3RF byhjpefvrlot-qobogatw-vufvcb Tablet 1 tab PO DAILY cholecalciferol (vitamin D3) 25 mcg (1,000 unit) capsule 25 mcg PO DAILY timolol 0.25 % drops 1 drp OP BID Zyrtec 10 mg capsule 10 mg PO DAILY PRN (Reason: allergy symptoms) Qty: 90 3RF zolpidem 10 mg tablet 10 mg PO HS PRN (Reason: insomnia) Qty: 90 1RF cyclobenzaprine 10 mg tablet See Rx Instructions .ROUTE .COMPLEX Qty: 90 3RF Dose Instruction: TAKE 1 TABLET BY MOUTH AT BEDTIME NEEDED FOR MUSCLE SPASM Rx Instructions: TAKE 1 TABLET BY MOUTH AT BEDTIME NEEDED FOR MUSCLE SPASM Discharge Instructions Additional Instructions: Care after Gallbladder Surgery -Pain control: ?For the first 72 hours after surgery, take your pain meds continuously, and not just when you have pain.?? Alternate Tylenol 1000mg by mouth every 8 hours, and Ibuprofen 600mg every 6 hours.? Make sure you take ibuprofen with food and not on an empty stomach.? ??Use the tramadol for breakthrough pain- pain that is greater than a 7. ?- Use ICE! Ice really helps to keep the swelling down, and swelling causes pain. ??Twenty minutes on, and then off, continuously for the first 72hours.? After the first 72hrs, you can just use the Tylenol, ibuprofen, and ice, when you have pain.?? If you are taking narcotic pain medication, follow the instructions on the label and do not drive. Pain medications can make you very constipated. Make sure you are moving your bowels daily. If not, take Miralax. -Narcotic pain meds can makes you very constipated.? Take a dose of Miralax the morning after surgery and as needed while you are still taking them. ? Use an ice bag for the first 72 hours. This helps to decrease swelling, which causes pain. It is normal to be more sore/painful and swollen towards the end of the day and first thing in the morning. ? Use Miralax or prune juice to prevent constipation (this is a particular side effect of pain medication and anesthesia). Do not allow yourself to become constipated. ? Avoid fatty or greasy foods; introduce these slowly, with care, after about 1 month. High-fat foods include: ? Foods that are fried, like [place] fries and potato chips ? High-fat meats, such as cummings, bologna, sausage, ground beef, and ribs, pork products ? High-fat dairy products, such as cheese, ice cream, cream, whole milk, and sour cream ? Pizza ? Foods made with lard or butter ? Creamy soups or sauces ? Meat gravies ? Chocolate ? Oils, such as palm and coconut oil ? Skin of chicken or turkey ? Nuts and nut butters ? Avocadoes ? Start out eating very small, bland amounts of food. Do not take pain pills on an empty stomach. - You will notice purple discoloration around the incisions.? This is the ?skin glue?.? This will wear off on its own.? It is OK to shower after 24hrs.? You do not need to cover the incisions. -You should walk frequently, gradually, increasing the distance. You may climb stairs, just go slowly. ? Do not go swimming or sit in a hot tub for two weeks. ? There are no stitches to remove. ? Do not drive your car x72hrs and then only if you have no pain and can move freely. Do not drive if you are taking pain narcotic pain medications. ? You may resume sexual activity whenever pain and soreness subside, usually in 2 weeks. ? Do no lift anything over 5 lbs. for two weeks. ? You may return to work in one week, or when you feel able, provided you do not have to do any heavy lifting or prolonged standing. ? You should return to Dr. Alston?s office for a post-op appointment about two weeks after surgery. A follow-up should have been scheduled for you already.? If there is not, please call the Surgical Clinic at: [phone] to schedule an appointment. My Medications for pain and nausea are: Tylenol/ibuprofen ?and oxycodone- for severe pain ? When to Call the Office: ? If the incision becomes red or swollen, or there is more than a little drainage from it. ? If you develop a temperature higher than 100.5 F. ? If your eyes turn yellow ? Vomiting and can?t keep fluids down ? If the blinking green light on the little vacuum dressing changes color Referrals: Nneka Alston, [OSTEOPATHIC DOCTOR] - (July 15 at 2:30 PM) Activity:: See above Equipment/Supplies:: No Equipment Needed Diet:: See above Discharge Orders Discharge Orders: Discharge Order (Routine); Ordered 07/09/23 Ordered By: Nneka Alston DS: Summary Time Spent with Patient providing and/or coordinating discharge services: Less than 30 minutes Status at Discharge Functional status at discharge: independent ambulation Overall status at discharge: patient is back to baseline Mental Status: mental status grossly normal Speech and Movement: speech and movement normal Mood: congruent mood Affect: normal affect Exam GI Other: Abdomen soft and nondistended. Incision clean. Fran dressing is working appropriately. Psych Mental Status: mental status grossly normal Speech and Movement: speech and movement normal Mood: congruent mood Affect: normal affect DS: Data Vitals/I&O Vitals and I&O: Vital Signs Temperature 97.3 F L 07/11/23 04:17 Temperature Source Tympanic 07/11/23 04:17 Pulse 78 07/11/23 04:17 Pulse Rhythm Regular 07/10/23 20:30 Respiratory Rate 18 07/11/23 04:17 Respiratory Effort Normal, Non-Labored 07/10/23 20:30 Respiratory Depth Normal 07/10/23 20:30 Respiratory Pattern Normal 07/10/23 20:30 Blood Pressure 104/68 07/11/23 04:17 Pulse Oximetry 92 07/11/23 04:17 Oxygen Delivery Method Room Air 07/11/23 04:17 Oxygen Flow Rate 0 07/11/23 04:17 Pain Level 2 07/11/23 04:17 Comment Pt was getting IV placed right after vitals and is anxious about needles 07/10/23 19:58 Intake & Output 07/10/23 07/10/23 07/11/23 11:59 23:59 11:59 Intake Total 1100 / 2721.667 1621.667 / 2721.667 0 / 0 Balance 1100 / 2721.667 1621.667 / 2721.667 0 / 0 Intake: IV 860 / 4213.830 5121.667 / 1941.667 0 / 0 Oral 240 / 780 540 / 780 Other: Urine Appearance Clear Clear Comment pt is independent with voiding Data Completed and Pending Labs on day of discharge: Labs from last 24 hours 07/10/23 06:15 WBC 11.99 H RBC 3.52 L Hgb 11.4 Hct 34.5 L MCV 98 H MCH 32.4 MCHC 33.0 RDW 12.4 Plt Count 235 MPV 10.4 Immature Gran % 0.3 Neutrophils % 75.4 Lymphocytes % 13.8 Monocytes % 10.0 Eosinophils % 0.2 Basophils % 0.3 Nucleated RBC % 0.0 Absolute Neutrophils 9.04 H Absolute Lymphocytes 1.65 Absolute Monocytes 1.20 H Absolute Eosinophils 0.02 Absolute Basophils 0.04 PFSH All Active Problems Seborrheic keratoses (Acute) Ex-smoker (Acute) Osteopenia (Acute) Joint stiffness (Acute) Joint pain (Acute) Osteoarthritis (Chronic) Colorectal polyp detected on colonoscopy (Acute ~02/09/19) DM (diabetes mellitus) (Chronic) Osteopenia (Acute) Hyperlipidemia (Acute) Essential hypertension (Acute) Low back pain (Acute) Medical History Allergic rhinitis Colon polyp Fatigue Fibrocystic breast Glaucoma Hypoglycemia Impaired fasting glucose Surgical History H/O endoscopy (~05/29/23) 05/29/23 Suspected Bile Duct Stones per report History of colonoscopy (~02/09/19) 2010- normal 2018- SSA and HP 2021 History of tonsillectomy History of tubal ligation S/P cholecystectomy Family History Father Diabetes Heart disease Mother No problems noted. Brother No problems noted. Sister No problems noted. Son No problems noted. 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
--- NOTE | 2023-07-11 06:53 | W.PM.PROGNOT ---
Date of Service Date of service: 07/11/23 Time of Service: 06:53 Assessment and Plan Assessment and plan (1) S/P cholecystectomy: Assessment and plan: Plan for discharge home later this morning Subjective Subjective Interval history since last seen: Vandana did great through yesterday afternoon, and tolerated dinner without any difficulty. She was able to sleep better last night. She feels good this morning, and is eager to get up from bed. Exam GI Other: Her abdomen soft and nondistended. The cassie dressing looks fine. Umbilical incision looks great. Objective Last Vital Signs Temp 97.3 F L 07/11/23 04:17 Pulse 78 07/11/23 04:17 Resp 18 07/11/23 04:17 BP 104/68 07/11/23 04:17 Pulse Ox 92 07/11/23 04:17 Laboratory Results - last 24 hr 07/10/23 06:15 WBC 11.99 H RBC 3.52 L Hgb 11.4 Hct 34.5 L MCV 98 H MCH 32.4 MCHC 33.0 RDW 12.4 Plt Count 235 MPV 10.4 Immature Gran % 0.3 Neutrophils % 75.4 Lymphocytes % 13.8 Monocytes % 10.0 Eosinophils % 0.2 Basophils % 0.3 Nucleated RBC % 0.0 Absolute Neutrophils 9.04 H Absolute Lymphocytes 1.65 Absolute Monocytes 1.20 H Absolute Eosinophils 0.02 Absolute Basophils 0.04 Time Spent with Patient Time Spent with Patient: <25 minutes Time was spent: preparing to see the patient(eg.review tests) and counseling the patient
[2023-07-11 07:23] VITALS: BP 123/83; PULSE 66; RESP 18; TEMP 35.7; O2SAT 96
[2023-07-11] MEDS: Lisinopril 10 MG TAB PO (08:28)
[2023-07-11] MEDS: Polyethylene Glycol 3350 17 GM PACKET PO (08:29)
[2023-07-11] MEDS: Enoxaparin 40 MG/0.4 ML SYR SC (08:29)
[2023-07-11] MEDS: Normal Saline Flush 10 ML SYR IVP (08:39)
--- NOTE | 2023-07-11 10:44 | CMDISCH_ITS ---
Date of service: 07/11/23 Time of Service: 10:44 LACE Index Scoring Tool Questions: Length of Stay (in days): 2 Was the patient admitted via the E.D.?: No Comorbidities: Diabetes w/o Complication E.D. Visits: 1 Answers: Total Score: 4 Risk of Readmission: Low Risk Care Management Discharge Plan Reason for Hospitalization: s/p open cholecystectomy Discharge Plan: Vandana will return home today with no new services. Her wi ll pick her up via private vehicle. She will follow up with surgical services, and her discharge plan of care. She is happy to be returning home. Patient/Family Education Needs: Review discharge instructions and limitations, discussion of self care needs including ask me three.
== END 2023-07-11 11:13 | disposition home or self-care (01) | DRG 416 ==
LOC: MS 11:15
PROVIDERS: Admitting Provider Surgery; PCP Nurse Practitioner; Visit Provider Surgery
PROC: 0FT44ZZ Resection of Gallbladder, Percutaneous Endoscopic Approach (ICD-10-PCS; CPT 47562; principal; 2023-07-09 07:30)
DX: K80.10 Calculus of gallbladder with chronic cholecystitis without obstruction (principal); E78.00 Pure hypercholesterolemia, unspecified; K82.8 Other specified diseases of gallbladder; I10 Essential (primary) hypertension; M85.80 Other specified disorders of bone density and structure, unspecified site; E11.9 Type 2 diabetes mellitus without complications; H40.9 Unspecified glaucoma; M54.50 Low back pain, unspecified; Z87.891 Personal history of nicotine dependence; Z53.31 Laparoscopic surgical procedure converted to open procedure
CPT/HCPCS: 47600; 36415; J1650; 85025; 88304; J0690; J1100; J1170; J1885; J2405; J2543

== ENCOUNTER → 2023-07-15 14:04 | Outpatient (BNVA) | payer MEDICARE, SELFPAY | PROVIDERS: PCP Nurse Practitioner; Referring Provider Nurse Practitioner; Visit Provider Surgery | DX: Z48.815 Encounter for surgical aftercare following surgery on the digestive system (principal); B37.0 Candidal stomatitis ==

== ENCOUNTER → 2023-07-22 08:45 | Outpatient (BNVA) | payer MEDICARE, SELFPAY | PROVIDERS: PCP Nurse Practitioner; Referring Provider Nurse Practitioner; Visit Provider Surgery | DX: Z48.815 Encounter for surgical aftercare following surgery on the digestive system (principal) ==

== ENCOUNTER → 2023-08-05 09:42 | Outpatient (BNVA) | payer MEDICARE, SELFPAY | PROVIDERS: PCP Nurse Practitioner; Referring Provider Nurse Practitioner; Visit Provider Surgery | DX: Z48.815 Encounter for surgical aftercare following surgery on the digestive system (principal); K59.09 Other constipation | CPT/HCPCS: 99242 ==

== ENCOUNTER 2025-01-04 02:15 | Outpatient (CLI) | payer MEDICARE, SELFPAY ==
[2025-01-04 12:29] LABS: HCT 40.9 % (36.0-46.0); HGB 13.5 g/dL (11.2-15.7); MCH 32.8 pg (27.0-33.0); MCV 100 fL (80-95); MPV 10.4 fL (8.0-11.0); Platelet Count 315 10^3/uL (130-400); RBC 4.11 10^6/uL (3.93-5.22); RDW 12.3 % (11.7-14.6); RDW-SD 45.3 fL; WBC 8.08 10^3/uL (4.4-10.8)
[2025-01-04 14:07] LABS: ALT 24 U/L (14-59); AST 19 U/L (15-37); Albumin 4.1 g/dL (3.4-5.0); Alkaline Phosphatase 92 U/L (46-116); Anion Gap 7.8 mmol/L (3-11); BUN 27 mg/dL (7-18); Bilirubin, Total 0.58 mg/dL (0.2-1.0); CO2 31.2 mmol/L (21.0-32.0); CREATININE 1.1 mg/dL (0.55-1.02); Calcium 9.6 mg/dL (8.5-10.1); Calculated LDL 85 mg/dL (<100); Chloride 102 mmol/L (98-107); Cholesterol 179 mg/dL (<200); Estimated GFR 53.72 (mL/min/1.73m2); Glucose 122 mg/dL (74-106); HDL Cholesterol 73 mg/dL (>or=50); Potassium 4.2 mmol/L (3.5-5.1); Sodium 141 mmol/L (136-145); Total Protein 7.8 g/dL (6.4-8.2); Triglyceride 108 mg/dL (<150)
== END 2025-01-04 02:16 | disposition home or self-care (01) ==
LOC: LOS 02:15
PROVIDERS: PCP Nurse Practitioner; Visit Provider Nurse Practitioner
DX: E11.9 Type 2 diabetes mellitus without complications (principal); D64.9 Anemia, unspecified; E78.00 Pure hypercholesterolemia, unspecified
CPT/HCPCS: 36415; 80053; 80061; 85027

== ENCOUNTER 2025-04-12 01:50 | Outpatient (CLI) | payer MEDICARE, SELFPAY ==
--- NOTE | 2025-04-12 06:30 | DI.DEXA_ITS ---
Exam(s) XR DEXA BONE DENSITY W/WO SHONNA EXAM: XR DEXA BONE DENSITY W/WO SHONNA CLINICAL HISTORY: screening for osteoporos in asymptomatic menopausal state,z78.0 TECHNIQUE: Routine DEXA evaluation of the lumbar spine, hip, or forearm. COMPARISON: CR XR DEXA BONE DENSITY W/WO SHONNA from 02/01/2021 FINDINGS: Performed on a Hologic unit. Lateral image: No compression fracture evident. Lumbar Spine total T-score: -1.2 which is osteopenia range. Prior reading in January 2021 was -1.0 Hip total T-score:-1.8 which is osteopenia range. Prior reading in January 2021 was -1.9. Independent reading at the level of the femoral neck yields T-score of -2.2 which is osteopenia rang e Forearm total T-score: -3.0 which is osteoporosis range IMPRESSION: Bone mineral density measures in the osteopenia range for the lumbar spine and hip. Fracture risk is moderate osteoporosis range for the wrist/forearm bones. Fracture risk is high at this level. Note: Any spine fracture indicates 5x risk for subsequent spine fracture and 2x risk for subsequent h ip fracture. World Health Organization criteria for BMD interpretation classify patients: Normal...... T- Score at or above -1.0 Osteopenic... T- Score between -1.0 and -2.5 Osteoporosis... T-Score at or below -2.5
--- NOTE | 2025-04-12 06:30 | DI.MAMMO_ITS ---
Exam(s) MAMMO SCREENING EXAM: MAMMO SCREENING CLINICAL HISTORY: screening,z12.39. TECHNIQUE: Bilateral full field digital CC and MLO mammographic images were obtained with 3D tomosyn thesis and utilizing computer aided detection (CAD). COMPARISON: Prior mammograms were reviewed. FINDINGS: There has been no significant change in the appearance and distribution of the fibroglandular tissue. Small benign-appearing nodular density laterally in the left breast seen on CC view is unchanged from prior mammograms. There are no new spiculated masses nor new malignant appearing microcalcification groups. There is no significant architectural distortion nor skin thickening-retraction. IMPRESSION: No radiographic evidence of malignancy. BI-RADS Category 1 - Negative Breast Density - Category B - There are scattered areas of fibroglandular density. Breast density Category C or D implies that the patient has dense breast tissue. Dense breast tissue can make it harder to find cancer on a mammogram. Dense breast tissue is also associated with an incr eased risk of breast cancer. This information about the result of the mammogram report was provided to the patient to raise their awareness. Use this report when you speak with the patient about their risks for breast cancer, which includes their family history. At that time, you may recommend additional screening tests (Ultrasoun d or MRI) as these tests may add significant information. A negative radiographic report should not delay biopsy if a dominant or clinically suspicious mass is present. Up to ten percent of cancers are not identified on mammography. A negative report may reinforce clinical impression. Adenosis and dense breasts may obscure an underlying neoplasm. False positive reports average 6 to 10%. Patient will receive a letter notifying them of these results.
== END 2025-04-12 02:10 ==
LOC: DI 01:50
PROVIDERS: PCP Nurse Practitioner; Visit Provider Nurse Practitioner
DX: Z12.31 Encounter for screening mammogram for malignant neoplasm of breast (principal); Z78.0 Asymptomatic menopausal state; Z13.820 Encounter for screening for osteoporosis; M85.88 Other specified disorders of bone density and structure, other site
CPT/HCPCS: 77063; 77067; 77080